=== PATIENT | female | born 1950 | race Caucasian/White ===

== ENCOUNTER → 2023-11-05 06:29 | Outpatient (REF) | payer MEDICARE, BC, SELFPAY ==
[2023-11-05 06:59] LABS: % Basophils 0.6 % (0-2); % Eosinophils 6.5 % (0-6); % Immature Granulocytes 0.2 % (0-0.5); % Lymphocytes 16.4 % (20.5-51.1); % Neutrophils 60.3 % (42.2-75.2); Absolute Eosinophils 0.3 10^3/uL (0-0.7); Absolute Lymphocytes 0.8 10^3/uL (1.2-3.4); Absolute Monocytes 0.8 10^3/uL (0.1-0.6); Absolute Neutrophils 2.9 10^3/uL (1.4-6.5); Hematocrit 32.9 % (37.0-47.0); Hemoglobin 10.6 g/dL (12.0-16.0); Mean Corp Hgb Conc. 32.2 g/dL (33.0-37.0); Mean Corpuscular Hgb 32.7 pg (27.0-31.0); Mean Corpuscular Volume 101.5 fL (81.0-99.0); Mean Platelet Volume 9.5 fL (7.4-10.4); Nucleated Red Blood Cells % 0 %; Platelet Count 202 10^3/uL (130-400); Red Blood Cell Count 3.24 10^6/uL (4.20-5.40); Red Cell Dist. Width 17.3 % (11.5-14.5); White Blood Cell Count 4.8 10^3/uL (4.8-10.8)
[2023-11-05 07:38] LABS: ALT (SGPT) 25 U/L (0-35); AST (SGOT) 32 U/L (14-36); Albumin 3.9 g/dl (3.5-5.0); Alkaline Phosphatase 81 U/L (38-126); Blood Urea Nitrogen 18 mg/dl (7-17); Calcium 9.4 mg/dl (8.4-10.2); Carbon Dioxide 28 mmol/L (22-30); Chloride 104 mmol/L (98-107); Glucose 97 mg/dl (70-99); Potassium 4.1 mmol/L (3.5-5.1); Sodium 136 mmol/L (135-145); Total Protein 5.8 g/dl (6.3-8.2); eGFR > 60.00
[2023-11-05 20:28] LABS: CA 125 7.2 U/mL (0-35)
== END ==
LOC: REG 06:29
PROVIDERS: ATTENDING PHYSICIAN Internal Medicine Hematology & Oncology; FAMILY PHYSICIAN Internal Medicine
DX: C56.9 Malignant neoplasm of unspecified ovary (principal); D70.9 Neutropenia, unspecified
CPT/HCPCS: 36415; 80053; 85025; 86304

== ENCOUNTER → 2023-11-16 06:27 | Outpatient (REF) | payer MEDICARE, BC, SELFPAY ==
[2023-11-16 07:08] LABS: % Basophils 0.4 % (0-2); % Eosinophils 6.9 % (0-6); % Immature Granulocytes 0.2 % (0-0.5); % Lymphocytes 16.4 % (20.5-51.1); % Monocytes 12.4 % (1.7-9.3); % Neutrophils 63.7 % (42.2-75.2); Absolute Eosinophils 0.3 10^3/uL (0-0.7); Absolute Lymphocytes 0.8 10^3/uL (1.2-3.4); Absolute Monocytes 0.6 10^3/uL (0.1-0.6); Hematocrit 32.3 % (37.0-47.0); Hemoglobin 10.5 g/dL (12.0-16.0); Mean Corp Hgb Conc. 32.5 g/dL (33.0-37.0); Mean Corpuscular Hgb 32.9 pg (27.0-31.0); Mean Corpuscular Volume 101.3 fL (81.0-99.0); Mean Platelet Volume 9.8 fL (7.4-10.4); Nucleated Red Blood Cells % 0 %; Platelet Count 197 10^3/uL (130-400); Red Blood Cell Count 3.19 10^6/uL (4.20-5.40); Red Cell Dist. Width 16.1 % (11.5-14.5); White Blood Cell Count 4.8 10^3/uL (4.8-10.8)
[2023-11-16 07:34] LABS: Urine Protein 58 mg/dl (0-12)
[2023-11-16 07:45] LABS: ALT (SGPT) 30 U/L (0-35); AST (SGOT) 34 U/L (14-36); Albumin 3.6 g/dl (3.5-5.0); Alkaline Phosphatase 73 U/L (38-126); Blood Urea Nitrogen 19 mg/dl (7-17); Calcium 9.5 mg/dl (8.4-10.2); Carbon Dioxide 31 mmol/L (22-30); Chloride 101 mmol/L (98-107); Glucose 101 mg/dl (70-99); Iron 62 ug/dl (37-170); Sodium 138 mmol/L (135-145); Total Bilirubin 0.8 mg/dl (0.2-1.3); eGFR > 60.00
[2023-11-16 07:55] LABS: Percent Saturation 25 % (20-50); Total Iron Binding Capacity 248 ug/dl (265-497)
[2023-11-16 09:45] LABS: Free T4 0.89 ng/dl (0.78-2.19)
[2023-11-16 10:05] LABS: Ferritin 39.6 ng/ml (11.1-264.0)
[2023-11-16 11:45] LABS: Folate 10.2 ng/ml (2.76-20); Vitamin B12 377 pg/ml (239-931)
== END ==
LOC: REG 06:27
PROVIDERS: ATTENDING PHYSICIAN Nurse Practitioner Primary Care; FAMILY PHYSICIAN Internal Medicine Hematology & Oncology; REFERRING PHYSICIAN Internal Medicine
DX: D64.9 Anemia, unspecified (principal); E53.8 Deficiency of other specified B group vitamins; C56.9 Malignant neoplasm of unspecified ovary; D70.9 Neutropenia, unspecified
CPT/HCPCS: 36415; 80053; 82570; 82607; 82728; 82746; 83540; 83550; 84156; 84439; 84443; 85025

== ENCOUNTER → 2023-11-19 06:37 | Day surgery (SDC) | payer MEDICARE, BC, SELFPAY | LOC: GI 06:37 | PROVIDERS: ATTENDING PHYSICIAN Internal Medicine; FAMILY PHYSICIAN Internal Medicine | DX: R09.A2 Foreign body sensation, throat (principal); R09.89 Other specified symptoms and signs involving the circulatory and respiratory systems; F45.8 Other somatoform disorders; K21.00 Gastro-esophageal reflux disease with esophagitis, without bleeding; K22.4 Dyskinesia of esophagus; K22.9 Disease of esophagus, unspecified | CPT/HCPCS: 43239; 88305; 87220 ==

== ENCOUNTER → 2023-11-27 06:27 | Outpatient (REF) | payer MEDICARE, BC, SELFPAY ==
[2023-11-27 07:38] LABS: % Basophils 0.5 % (0-2); % Eosinophils 7.1 % (0-6); % Lymphocytes 21.6 % (20.5-51.1); % Monocytes 15.6 % (1.7-9.3); % Neutrophils 55.2 % (42.2-75.2); Absolute Eosinophils 0.3 10^3/uL (0-0.7); Absolute Lymphocytes 0.8 10^3/uL (1.2-3.4); Absolute Monocytes 0.6 10^3/uL (0.1-0.6); Absolute Neutrophils 2.1 10^3/uL (1.4-6.5); Hematocrit 32.3 % (37.0-47.0); Hemoglobin 10.4 g/dL (12.0-16.0); Mean Corp Hgb Conc. 32.2 g/dL (33.0-37.0); Mean Corpuscular Hgb 31.5 pg (27.0-31.0); Mean Corpuscular Volume 97.9 fL (81.0-99.0); Nucleated Red Blood Cells % 0 %; Platelet Count 179 10^3/uL (130-400); Red Cell Dist. Width 14.6 % (11.5-14.5); White Blood Cell Count 3.8 10^3/uL (4.8-10.8)
[2023-11-27 07:55] LABS: Protein/creatinine Ratio 0.5; Urine Protein 52 mg/dl
[2023-11-27 08:04] LABS: NT-proBNP 124 pg/ml
[2023-11-27 08:15] LABS: ALT (SGPT) 24 U/L (0-35); AST (SGOT) 28 U/L (14-36); Albumin 3.7 g/dl (3.5-5.0); Alkaline Phosphatase 63 U/L (38-126); Blood Urea Nitrogen 19 mg/dl (7-17); Calcium 9.3 mg/dl (8.4-10.2); Carbon Dioxide 31 mmol/L (22-30); Chloride 102 mmol/L (98-107); Glucose 94 mg/dl (70-99); Potassium 4.4 mmol/L (3.5-5.1); Sodium 138 mmol/L (135-145); Total Bilirubin 0.6 mg/dl (0.2-1.3); Total Protein 5.6 g/dl (6.3-8.2); eGFR > 60.00
== END ==
LOC: REG 06:27
PROVIDERS: ATTENDING PHYSICIAN Nurse Practitioner Adult Health; FAMILY PHYSICIAN Internal Medicine
DX: C56.9 Malignant neoplasm of unspecified ovary (principal); D70.9 Neutropenia, unspecified
CPT/HCPCS: 36415; 80053; 82570; 83880; 84156; 85025

== ENCOUNTER → 2023-12-17 06:23 | Outpatient (REF) | payer MEDICARE, BC, SELFPAY ==
[2023-12-17 07:36] LABS: Urine Protein 46 mg/dl (0-12)
[2023-12-17 07:43] LABS: % Basophils 0.6 % (0-2); % Eosinophils 3.6 % (0-6); % Lymphocytes 21.5 % (20.5-51.1); % Monocytes 13.5 % (1.7-9.3); % Neutrophils 60.8 % (42.2-75.2); Absolute Eosinophils 0.1 10^3/uL (0-0.7); Absolute Lymphocytes 0.8 10^3/uL (1.2-3.4); Absolute Monocytes 0.5 10^3/uL (0.1-0.6); Absolute Neutrophils 2.2 10^3/uL (1.4-6.5); Hematocrit 35.4 % (37.0-47.0); Hemoglobin 11.4 g/dL (12.0-16.0); Mean Corp Hgb Conc. 32.2 g/dL (33.0-37.0); Mean Corpuscular Hgb 31.4 pg (27.0-31.0); Mean Corpuscular Volume 97.5 fL (81.0-99.0); Mean Platelet Volume 10.3 fL (7.4-10.4); Nucleated Red Blood Cells % 0 %; Platelet Count 188 10^3/uL (130-400); Red Blood Cell Count 3.63 10^6/uL (4.20-5.40); Red Cell Dist. Width 13.5 % (11.5-14.5); White Blood Cell Count 3.6 10^3/uL (4.8-10.8)
[2023-12-17 08:13] LABS: ALT (SGPT) 25 U/L (0-35); AST (SGOT) 34 U/L (14-36); Albumin 3.9 g/dl (3.5-5.0); Alkaline Phosphatase 75 U/L (38-126); Blood Urea Nitrogen 18 mg/dl (7-17); Calcium 9.6 mg/dl (8.4-10.2); Carbon Dioxide 29 mmol/L (22-30); Chloride 102 mmol/L (98-107); Glucose 93 mg/dl (70-99); Potassium 4.1 mmol/L (3.5-5.1); Sodium 135 mmol/L (135-145); Total Bilirubin 0.8 mg/dl (0.2-1.3); Total Protein 6.1 g/dl (6.3-8.2); eGFR > 60.00
== END ==
LOC: REG 06:23
PROVIDERS: ATTENDING PHYSICIAN Internal Medicine Hematology & Oncology
DX: C56.9 Malignant neoplasm of unspecified ovary (principal); D70.9 Neutropenia, unspecified
CPT/HCPCS: 36415; 80053; 82570; 84156; 85025

== ENCOUNTER → 2024-01-06 06:59 | Outpatient (REF) | payer MEDICARE, BC, SELFPAY ==
[2024-01-06 07:33] LABS: % Basophils 0.7 % (0-2); % Eosinophils 4.1 % (0-6); % Immature Granulocytes 0.2 % (0-0.5); % Lymphocytes 26.8 % (20.5-51.1); % Monocytes 11.7 % (1.7-9.3); % Neutrophils 56.5 % (42.2-75.2); Absolute Eosinophils 0.2 10^3/uL (0-0.7); Absolute Lymphocytes 1.1 10^3/uL (1.2-3.4); Absolute Monocytes 0.5 10^3/uL (0.1-0.6); Absolute Neutrophils 2.3 10^3/uL (1.4-6.5); Hematocrit 37.8 % (37.0-47.0); Hemoglobin 12.1 g/dL (12.0-16.0); Mean Corpuscular Hgb 30.6 pg (27.0-31.0); Mean Corpuscular Volume 95.5 fL (81.0-99.0); Mean Platelet Volume 9.7 fL (7.4-10.4); Nucleated Red Blood Cells % 0 %; Platelet Count 175 10^3/uL (130-400); Red Blood Cell Count 3.96 10^6/uL (4.20-5.40); Red Cell Dist. Width 13.3 % (11.5-14.5); White Blood Cell Count 4.1 10^3/uL (4.8-10.8)
[2024-01-06 09:00] LABS: Urine Protein 83 mg/dl
[2024-01-06 09:20] LABS: Protein/creatinine Ratio 1.2
[2024-01-06 09:39] LABS: ALT (SGPT) 51 U/L (0-35); AST (SGOT) 49 U/L (14-36); Albumin 4.2 g/dl (3.5-5.0); Alkaline Phosphatase 72 U/L (38-126); Blood Urea Nitrogen 22 mg/dl (7-17); Calcium 9.6 mg/dl (8.4-10.2); Carbon Dioxide 30 mmol/L (22-30); Chloride 101 mmol/L (98-107); Glucose 89 mg/dl (70-99); Potassium 4.3 mmol/L (3.5-5.1); Sodium 137 mmol/L (135-145); Total Bilirubin 0.6 mg/dl (0.2-1.3); Total Protein 6.4 g/dl (6.3-8.2); eGFR > 60.00
== END ==
LOC: REG 06:59
PROVIDERS: ATTENDING PHYSICIAN Nurse Practitioner Adult Health; FAMILY PHYSICIAN Internal Medicine
DX: C56.9 Malignant neoplasm of unspecified ovary (principal); D70.9 Neutropenia, unspecified
CPT/HCPCS: 36415; 80053; 82570; 84156; 85025

== ENCOUNTER → 2024-01-07 14:22 | Outpatient (REF) | payer MEDICARE, BC, SELFPAY ==
[2024-01-07 15:02] LABS: CA 125 8.8 U/mL (0-35)
== END ==
LOC: OIDL 14:22
PROVIDERS: ATTENDING PHYSICIAN Internal Medicine Hematology & Oncology
DX: C56.9 Malignant neoplasm of unspecified ovary (principal)
CPT/HCPCS: 86304

== ENCOUNTER → 2024-01-27 06:32 | Outpatient (REF) | payer MEDICARE, BC, SELFPAY ==
[2024-01-27 07:12] LABS: % Basophils 0.8 % (0-2); % Eosinophils 3.4 % (0-6); % Immature Granulocytes 0.3 % (0-0.5); % Lymphocytes 27.5 % (20.5-51.1); Absolute Eosinophils 0.1 10^3/uL (0-0.7); Absolute Lymphocytes 1.1 10^3/uL (1.2-3.4); Absolute Monocytes 0.5 10^3/uL (0.1-0.6); Absolute Neutrophils 2.1 10^3/uL (1.4-6.5); Hematocrit 38.6 % (37.0-47.0); Hemoglobin 12.6 g/dL (12.0-16.0); Mean Corp Hgb Conc. 32.6 g/dL (33.0-37.0); Mean Corpuscular Hgb 29.6 pg (27.0-31.0); Mean Corpuscular Volume 90.8 fL (81.0-99.0); Mean Platelet Volume 10.3 fL (7.4-10.4); Nucleated Red Blood Cells % 0 %; Platelet Count 171 10^3/uL (130-400); Red Blood Cell Count 4.25 10^6/uL (4.20-5.40); Red Cell Dist. Width 13.3 % (11.5-14.5); White Blood Cell Count 3.9 10^3/uL (4.8-10.8)
[2024-01-27 07:38] LABS: NT-proBNP 108 pg/ml
[2024-01-27 07:45] LABS: Urine Protein 43 mg/dl (0-12)
[2024-01-27 07:56] LABS: ALT (SGPT) 34 U/L (0-35); AST (SGOT) 40 U/L (14-36); Alkaline Phosphatase 68 U/L (38-126); Blood Urea Nitrogen 29 mg/dl (7-17); Calcium 9.7 mg/dl (8.4-10.2); Carbon Dioxide 29 mmol/L (22-30); Chloride 101 mmol/L (98-107); Glucose 91 mg/dl (70-99); Sodium 135 mmol/L (135-145); Total Bilirubin 0.7 mg/dl (0.2-1.3); eGFR > 60.00
== END ==
LOC: REG 06:32
PROVIDERS: ATTENDING PHYSICIAN Internal Medicine Cardiovascular Disease; FAMILY PHYSICIAN Internal Medicine Hematology & Oncology
DX: R60.0 Localized edema (principal); C56.9 Malignant neoplasm of unspecified ovary; D70.9 Neutropenia, unspecified
CPT/HCPCS: 36415; 80053; 82570; 83880; 84156; 85025

== ENCOUNTER → 2024-02-17 09:17 | Outpatient (REF) | payer MEDICARE, BC, SELFPAY ==
[2024-02-17 10:49] LABS: % Basophils 0.4 % (0-2); % Eosinophils 2.6 % (0-6); % Lymphocytes 18.2 % (20.5-51.1); % Monocytes 10.3 % (1.7-9.3); % Neutrophils 68.5 % (42.2-75.2); Absolute Eosinophils 0.1 10^3/uL (0-0.7); Absolute Lymphocytes 0.8 10^3/uL (1.2-3.4); Absolute Monocytes 0.5 10^3/uL (0.1-0.6); Absolute Neutrophils 3.1 10^3/uL (1.4-6.5); Hemoglobin 12.7 g/dL (12.0-16.0); Mean Corp Hgb Conc. 32.6 g/dL (33.0-37.0); Mean Corpuscular Hgb 29.5 pg (27.0-31.0); Mean Corpuscular Volume 90.5 fL (81.0-99.0); Mean Platelet Volume 10.1 fL (7.4-10.4); Nucleated Red Blood Cells % 0 %; Platelet Count 148 10^3/uL (130-400); Red Blood Cell Count 4.31 10^6/uL (4.20-5.40); Red Cell Dist. Width 13.4 % (11.5-14.5); White Blood Cell Count 4.6 10^3/uL (4.8-10.8)
[2024-02-17 11:40] LABS: Protein/creatinine Ratio 0.5; Urine Protein 44 mg/dl
[2024-02-17 12:21] LABS: ALT (SGPT) 22 U/L (0-35); AST (SGOT) 34 U/L (14-36); Alkaline Phosphatase 56 U/L (38-126); Blood Urea Nitrogen 23 mg/dl (7-17); Calcium 9.5 mg/dl (8.4-10.2); Carbon Dioxide 33 mmol/L (22-30); Chloride 100 mmol/L (98-107); Glucose 77 mg/dl (70-99); Potassium 4.7 mmol/L (3.5-5.1); Sodium 140 mmol/L (135-145); Total Bilirubin 0.5 mg/dl (0.2-1.3); Total Protein 6.2 g/dl (6.3-8.2); eGFR > 60.00
== END ==
LOC: RCS 09:17
PROVIDERS: ATTENDING PHYSICIAN Internal Medicine Cardiovascular Disease; FAMILY PHYSICIAN Nurse Practitioner Primary Care; REFERRING PHYSICIAN Internal Medicine Hematology & Oncology
DX: R06.09 Other forms of dyspnea (principal); T45.1X5D Adverse effect of antineoplastic and immunosuppressive drugs, subsequent encounter; R60.0 Localized edema; C56.9 Malignant neoplasm of unspecified ovary; D70.9 Neutropenia, unspecified
CPT/HCPCS: 36415; 80053; 82570; 84156; 85025; 93306; 93356

== ENCOUNTER → 2024-02-18 10:13 | Outpatient (REF) | payer MEDICARE, BC, SELFPAY ==
[2024-02-18 20:11] LABS: CA 125 6.4 U/mL (0-35)
== END ==
LOC: OIDL 10:13
PROVIDERS: ATTENDING PHYSICIAN Internal Medicine Hematology & Oncology
DX: C56.9 Malignant neoplasm of unspecified ovary (principal)
CPT/HCPCS: 86304

== ENCOUNTER → 2024-03-07 06:27 | Outpatient (REF) | payer MEDICARE, BC, SELFPAY ==
[2024-03-07 07:51] LABS: % Basophils 0.8 % (0-2); % Eosinophils 4.6 % (0-6); % Immature Granulocytes 0.3 % (0-0.5); % Lymphocytes 30.2 % (20.5-51.1); % Monocytes 12.2 % (1.7-9.3); % Neutrophils 51.9 % (42.2-75.2); Absolute Eosinophils 0.2 10^3/uL (0-0.7); Absolute Lymphocytes 1.1 10^3/uL (1.2-3.4); Absolute Monocytes 0.5 10^3/uL (0.1-0.6); Absolute Neutrophils 1.9 10^3/uL (1.4-6.5); Hematocrit 39.4 % (37.0-47.0); Mean Corpuscular Hgb 29.6 pg (27.0-31.0); Mean Corpuscular Volume 89.7 fL (81.0-99.0); Mean Platelet Volume 11.5 fL (7.4-10.4); Nucleated Red Blood Cells % 0 %; Platelet Count 150 10^3/uL (130-400); Red Blood Cell Count 4.39 10^6/uL (4.20-5.40); Red Cell Dist. Width 13.9 % (11.5-14.5); White Blood Cell Count 3.7 10^3/uL (4.8-10.8)
[2024-03-07 08:36] LABS: ALT (SGPT) 24 U/L (0-35); AST (SGOT) 38 U/L (14-36); Alkaline Phosphatase 66 U/L (38-126); Blood Urea Nitrogen 27 mg/dl (7-17); Calcium 9.7 mg/dl (8.4-10.2); Carbon Dioxide 31 mmol/L (22-30); Chloride 98 mmol/L (98-107); Glucose 98 mg/dl (70-99); Potassium 4.3 mmol/L (3.5-5.1); Sodium 137 mmol/L (135-145); Total Bilirubin 0.9 mg/dl (0.2-1.3); Total Protein 6.2 g/dl (6.3-8.2); eGFR > 60.00
[2024-03-07 08:49] LABS: Protein/creatinine Ratio 0.5; Urine Protein 40 mg/dl
== END ==
LOC: REG 06:27
PROVIDERS: ATTENDING PHYSICIAN Internal Medicine Hematology & Oncology; FAMILY PHYSICIAN Internal Medicine
DX: C56.9 Malignant neoplasm of unspecified ovary (principal); D70.9 Neutropenia, unspecified
CPT/HCPCS: 36415; 80053; 82570; 84156; 85025

== ENCOUNTER → 2024-04-02 07:15 | Outpatient (REF) | payer MEDICARE, BC, SELFPAY ==
[2024-04-02 08:27] LABS: % Basophils 0.3 % (0-2); % Immature Granulocytes 0.3 % (0-0.5); % Lymphocytes 30.9 % (20.5-51.1); % Monocytes 13.5 % (1.7-9.3); Absolute Eosinophils 0.1 10^3/uL (0-0.7); Absolute Lymphocytes 1.1 10^3/uL (1.2-3.4); Absolute Monocytes 0.5 10^3/uL (0.1-0.6); Absolute Neutrophils 1.8 10^3/uL (1.4-6.5); Hematocrit 36.7 % (37.0-47.0); Hemoglobin 12.1 g/dL (12.0-16.0); Mean Corpuscular Hgb 30.1 pg (27.0-31.0); Mean Corpuscular Volume 91.3 fL (81.0-99.0); Mean Platelet Volume 10.9 fL (7.4-10.4); Nucleated Red Blood Cells % 0 %; Platelet Count 146 10^3/uL (130-400); Red Blood Cell Count 4.02 10^6/uL (4.20-5.40); Red Cell Dist. Width 14.2 % (11.5-14.5); White Blood Cell Count 3.5 10^3/uL (4.8-10.8)
[2024-04-02 09:04] LABS: ALT (SGPT) 24 U/L (0-35); AST (SGOT) 33 U/L (14-36); Alkaline Phosphatase 60 U/L (38-126); Blood Urea Nitrogen 24 mg/dl (7-17); Calcium 9.3 mg/dl (8.4-10.2); Carbon Dioxide 30 mmol/L (22-30); Chloride 102 mmol/L (98-107); Glucose 94 mg/dl (70-99); Potassium 4.4 mmol/L (3.5-5.1); Protein/creatinine Ratio 0.3; Sodium 139 mmol/L (135-145); Total Bilirubin 0.5 mg/dl (0.2-1.3); Urine Protein 32 mg/dl; eGFR > 60.00
== END ==
LOC: REG 07:15
PROVIDERS: ATTENDING PHYSICIAN Internal Medicine Hematology & Oncology; FAMILY PHYSICIAN Internal Medicine
DX: C56.9 Malignant neoplasm of unspecified ovary (principal); D70.9 Neutropenia, unspecified
CPT/HCPCS: 36415; 80053; 82570; 84156; 85025

== ENCOUNTER → 2024-04-05 15:40 | Outpatient (REF) | payer MEDICARE, BC, SELFPAY ==
[2024-04-05 15:27] LABS: CA 125 5.8 U/mL (0-35)
== END ==
LOC: OIDL 15:40
PROVIDERS: ATTENDING PHYSICIAN Internal Medicine Hematology & Oncology
DX: C56.9 Malignant neoplasm of unspecified ovary (principal)
CPT/HCPCS: 86304

== ENCOUNTER → 2024-04-26 06:30 | Outpatient (REF) | payer MEDICARE, BC, SELFPAY ==
[2024-04-26 07:22] LABS: % Basophils 0.5 % (0-2); % Eosinophils 5.5 % (0-6); % Immature Granulocytes 0.5 % (0-0.5); % Lymphocytes 26.2 % (20.5-51.1); % Monocytes 12.3 % (1.7-9.3); Absolute Eosinophils 0.2 10^3/uL (0-0.7); Absolute Monocytes 0.5 10^3/uL (0.1-0.6); Absolute Neutrophils 2.2 10^3/uL (1.4-6.5); Hematocrit 36.3 % (37.0-47.0); Hemoglobin 12.3 g/dL (12.0-16.0); Mean Corp Hgb Conc. 33.9 g/dL (33.0-37.0); Mean Corpuscular Hgb 30.5 pg (27.0-31.0); Mean Corpuscular Volume 90.1 fL (81.0-99.0); Mean Platelet Volume 10.7 fL (7.4-10.4); Nucleated Red Blood Cells % 0 %; Platelet Count 150 10^3/uL (130-400); Red Blood Cell Count 4.03 10^6/uL (4.20-5.40); Red Cell Dist. Width 13.3 % (11.5-14.5)
[2024-04-26 07:55] LABS: Protein/creatinine Ratio 0.2; Urine Protein 30 mg/dl
[2024-04-26 08:29] LABS: ALT (SGPT) 25 U/L (0-35); AST (SGOT) 36 U/L (14-36); Alkaline Phosphatase 56 U/L (38-126); Blood Urea Nitrogen 28 mg/dl (7-17); Calcium 9.6 mg/dl (8.4-10.2); Carbon Dioxide 32 mmol/L (22-30); Chloride 99 mmol/L (98-107); Glucose 99 mg/dl (70-99); Potassium 4.5 mmol/L (3.5-5.1); Sodium 137 mmol/L (135-145); Total Bilirubin 0.7 mg/dl (0.2-1.3); eGFR > 60.00
== END ==
LOC: REG 06:30
PROVIDERS: ATTENDING PHYSICIAN Internal Medicine Hematology & Oncology; FAMILY PHYSICIAN Internal Medicine
DX: C56.9 Malignant neoplasm of unspecified ovary (principal); D70.9 Neutropenia, unspecified; M25.522 Pain in left elbow; M25.622 Stiffness of left elbow, not elsewhere classified
CPT/HCPCS: 36415; 80053; 82570; 84156; 85025

== ENCOUNTER → 2024-04-28 12:18 | Outpatient (REF) | payer MEDICARE, BC, SELFPAY | LOC: HWRAD 12:18 | PROVIDERS: ATTENDING PHYSICIAN Internal Medicine Hematology & Oncology; FAMILY PHYSICIAN Nurse Practitioner Primary Care; REFERRING PHYSICIAN Nurse Practitioner Adult Health | DX: C56.9 Malignant neoplasm of unspecified ovary (principal); D70.9 Neutropenia, unspecified; M25.522 Pain in left elbow; M25.622 Stiffness of left elbow, not elsewhere classified | CPT/HCPCS: 71260; 72050; 74177; Q9967 ==

== ENCOUNTER → 2024-05-16 06:28 | Outpatient (REF) | payer MEDICARE, BC, SELFPAY ==
[2024-05-16 07:58] LABS: Protein/creatinine Ratio 0.6; Urine Protein 43 mg/dl
[2024-05-16 08:09] LABS: % Basophils 0.5 % (0-2); % Eosinophils 4.5 % (0-6); % Immature Granulocytes 0.3 % (0-0.5); % Lymphocytes 27.9 % (20.5-51.1); % Monocytes 10.8 % (1.7-9.3); Absolute Eosinophils 0.2 10^3/uL (0-0.7); Absolute Lymphocytes 1.1 10^3/uL (1.2-3.4); Absolute Monocytes 0.4 10^3/uL (0.1-0.6); Absolute Neutrophils 2.1 10^3/uL (1.4-6.5); Hematocrit 38.2 % (37.0-47.0); Hemoglobin 12.7 g/dL (12.0-16.0); Mean Corp Hgb Conc. 33.2 g/dL (33.0-37.0); Mean Corpuscular Hgb 31.1 pg (27.0-31.0); Mean Corpuscular Volume 93.6 fL (81.0-99.0); Mean Platelet Volume 10.9 fL (7.4-10.4); Nucleated Red Blood Cells % 0 %; Platelet Count 166 10^3/uL (130-400); Red Blood Cell Count 4.08 10^6/uL (4.20-5.40); Red Cell Dist. Width 13.1 % (11.5-14.5); White Blood Cell Count 3.8 10^3/uL (4.8-10.8)
[2024-05-16 08:24] LABS: ALT (SGPT) 21 U/L (0-35); AST (SGOT) 33 U/L (14-36); Albumin 3.9 g/dl (3.5-5.0); Alkaline Phosphatase 61 U/L (38-126); Blood Urea Nitrogen 18 mg/dl (7-17); Calcium 9.3 mg/dl (8.4-10.2); Carbon Dioxide 32 mmol/L (22-30); Chloride 101 mmol/L (98-107); Glucose 105 mg/dl (70-99); Potassium 4.5 mmol/L (3.5-5.1); Sodium 141 mmol/L (135-145); Total Bilirubin 0.7 mg/dl (0.2-1.3); Total Protein 5.9 g/dl (6.3-8.2); eGFR > 60.00
[2024-05-16 08:53] LABS: CA 125 11.3 U/mL (0-35)
== END ==
LOC: REG 06:28
PROVIDERS: ATTENDING PHYSICIAN Internal Medicine Hematology & Oncology; FAMILY PHYSICIAN Internal Medicine
DX: C56.9 Malignant neoplasm of unspecified ovary (principal); D70.9 Neutropenia, unspecified; M25.522 Pain in left elbow; M25.622 Stiffness of left elbow, not elsewhere classified
CPT/HCPCS: 36415; 80053; 82570; 84156; 85025; 86304

== ENCOUNTER → 2024-06-06 10:34 | Outpatient (REF) | payer MEDICARE, BC, SELFPAY ==
[2024-06-06 11:45] LABS: % Basophils 0.4 % (0-2); % Immature Granulocytes 0.2 % (0-0.5); % Lymphocytes 17.4 % (20.5-51.1); % Monocytes 9.4 % (1.7-9.3); % Neutrophils 71.6 % (42.2-75.2); Absolute Eosinophils 0.1 10^3/uL (0-0.7); Absolute Lymphocytes 0.9 10^3/uL (1.2-3.4); Absolute Monocytes 0.5 10^3/uL (0.1-0.6); Absolute Neutrophils 3.7 10^3/uL (1.4-6.5); Hematocrit 38.3 % (37.0-47.0); Hemoglobin 12.8 g/dL (12.0-16.0); Mean Corp Hgb Conc. 33.4 g/dL (33.0-37.0); Mean Corpuscular Hgb 31.4 pg (27.0-31.0); Mean Corpuscular Volume 93.9 fL (81.0-99.0); Mean Platelet Volume 10.6 fL (7.4-10.4); Nucleated Red Blood Cells % 0 %; Platelet Count 157 10^3/uL (130-400); Red Blood Cell Count 4.08 10^6/uL (4.20-5.40); Red Cell Dist. Width 13.2 % (11.5-14.5); White Blood Cell Count 5.1 10^3/uL (4.8-10.8)
[2024-06-06 12:01] LABS: Urine Protein 89 mg/dl
[2024-06-06 12:26] LABS: ALT (SGPT) 37 U/L (0-35); AST (SGOT) 43 U/L (14-36); Albumin 4.3 g/dl (3.5-5.0); Alkaline Phosphatase 69 U/L (38-126); Blood Urea Nitrogen 19 mg/dl (7-17); Calcium 9.9 mg/dl (8.4-10.2); Carbon Dioxide 27 mmol/L (22-30); Chloride 99 mmol/L (98-107); Glucose 103 mg/dl (70-99); Potassium 5.3 mmol/L (3.5-5.1); Sodium 136 mmol/L (135-145); Total Bilirubin 1.1 mg/dl (0.2-1.3); Total Protein 6.3 g/dl (6.3-8.2); eGFR > 60.00
[2024-06-06 18:18] LABS: CA 125 14.2 U/mL (0-35)
== END ==
LOC: REG 10:34
PROVIDERS: ATTENDING PHYSICIAN Internal Medicine Hematology & Oncology; FAMILY PHYSICIAN Internal Medicine; REFERRING PHYSICIAN Internal Medicine Cardiovascular Disease
DX: C56.9 Malignant neoplasm of unspecified ovary (principal); M25.522 Pain in left elbow; D70.9 Neutropenia, unspecified; M25.622 Stiffness of left elbow, not elsewhere classified
CPT/HCPCS: 36415; 80053; 82570; 84156; 85025; 86304

== ENCOUNTER → 2024-06-30 10:16 | Outpatient (REF) | payer MEDICARE, BC, SELFPAY | LOC: WDC 10:16 | PROVIDERS: ATTENDING PHYSICIAN Nurse Practitioner Primary Care | DX: Z12.31 Encounter for screening mammogram for malignant neoplasm of breast (principal) | CPT/HCPCS: 77063; 77067 ==

== ENCOUNTER → 2024-07-02 07:16 | Outpatient (REF) | payer MEDICARE, BC, SELFPAY ==
[2024-07-02 08:50] LABS: % Basophils 0.8 % (0-2); % Eosinophils 2.7 % (0-6); % Immature Granulocytes 0.3 % (0-0.5); % Lymphocytes 16.8 % (20.5-51.1); % Monocytes 10.6 % (1.7-9.3); % Neutrophils 68.8 % (42.2-75.2); Absolute Eosinophils 0.1 10^3/uL (0-0.7); Absolute Lymphocytes 0.6 10^3/uL (1.2-3.4); Absolute Monocytes 0.4 10^3/uL (0.1-0.6); Absolute Neutrophils 2.5 10^3/uL (1.4-6.5); Hematocrit 38.8 % (37.0-47.0); Hemoglobin 12.7 g/dL (12.0-16.0); Mean Corp Hgb Conc. 32.7 g/dL (33.0-37.0); Mean Corpuscular Hgb 30.3 pg (27.0-31.0); Mean Corpuscular Volume 92.6 fL (81.0-99.0); Mean Platelet Volume 10.4 fL (7.4-10.4); Nucleated Red Blood Cells % 0 %; Platelet Count 174 10^3/uL (130-400); Red Blood Cell Count 4.19 10^6/uL (4.20-5.40); Red Cell Dist. Width 13.3 % (11.5-14.5); White Blood Cell Count 3.7 10^3/uL (4.8-10.8)
[2024-07-02 08:51] LABS: Protein/creatinine Ratio 0.5; Urine Protein 50 mg/dl
[2024-07-02 09:16] LABS: ALT (SGPT) 29 U/L (0-35); AST (SGOT) 36 U/L (14-36); Albumin 4.3 g/dl (3.5-5.0); Alkaline Phosphatase 55 U/L (38-126); Blood Urea Nitrogen 24 mg/dl (7-17); Calcium 9.6 mg/dl (8.4-10.2); Carbon Dioxide 29 mmol/L (22-30); Chloride 102 mmol/L (98-107); Glucose 96 mg/dl (70-99); HDL Cholesterol 100 mg/dl; LDL Cholesterol, Calculated 78 mg/dl; Potassium 4.9 mmol/L (3.5-5.1); Sodium 143 mmol/L (135-145); Total Cholesterol 199 mg/dl (50-199); Total Protein 6.3 g/dl (6.3-8.2); Triglyceride 108 mg/dl (10-149); Very Low Density Lipoprotein 21 mg/dl (0-30); eGFR > 60.00
[2024-07-02 09:17] LABS: NT-proBNP 74.2 pg/ml
[2024-07-02 09:26] LABS: D-Dimer 0.43 ug/mlFEU (0.00-0.50)
[2024-07-02 09:31] LABS: Vitamin D, 25-OH*** 33.1 ng/mL (30-80)
[2024-07-02 09:45] LABS: TSH Reflex To Free T4 4.57 uIU/ml (0.47-4.68)
[2024-07-03 23:42] LABS: IgG 381 mg/dl (700-1600)
== END ==
LOC: REG 07:16
PROVIDERS: ATTENDING PHYSICIAN Nurse Practitioner Primary Care; FAMILY PHYSICIAN Internal Medicine Hematology & Oncology
DX: C56.9 Malignant neoplasm of unspecified ovary (principal); D05.12 Intraductal carcinoma in situ of left breast; R91.1 Solitary pulmonary nodule; R06.09 Other forms of dyspnea; Z86.16 Personal history of COVID-19; D70.9 Neutropenia, unspecified; M25.522 Pain in left elbow; M25.622 Stiffness of left elbow, not elsewhere classified; I10 Essential (primary) hypertension; E78.2 Mixed hyperlipidemia; E55.9 Vitamin D deficiency, unspecified
CPT/HCPCS: 36415; 71046; 80053; 80061; 82306; 82570; 82784; 83880; 84156; 84443; 85025; 85379; 86304

== ENCOUNTER → 2024-07-08 15:47 | Outpatient (REF) | payer MEDICARE, BC, SELFPAY | LOC: HWRCS 15:47 | PROVIDERS: ATTENDING PHYSICIAN Internal Medicine Cardiovascular Disease; FAMILY PHYSICIAN Internal Medicine | DX: R06.09 Other forms of dyspnea (principal) | CPT/HCPCS: 93306 ==

== ENCOUNTER → 2024-07-13 07:41 | Outpatient (REF) | payer MEDICARE, BC, SELFPAY | LOC: DHCBC/DCA 07:41 | PROVIDERS: ATTENDING PHYSICIAN Internal Medicine Cardiovascular Disease; FAMILY PHYSICIAN Internal Medicine | DX: R06.09 Other forms of dyspnea (principal) | CPT/HCPCS: 78452; 93017; A9500 ==

== ENCOUNTER → 2024-07-15 09:12 | Outpatient (REF) | payer MEDICARE, BC, SELFPAY ==
[2024-07-15 10:11] LABS: % Basophils 0.6 % (0-2); % Eosinophils 2.4 % (0-6); % Immature Granulocytes 0.2 % (0-0.5); % Lymphocytes 16.5 % (20.5-51.1); % Monocytes 7.7 % (1.7-9.3); % Neutrophils 72.6 % (42.2-75.2); Absolute Eosinophils 0.1 10^3/uL (0-0.7); Absolute Lymphocytes 0.8 10^3/uL (1.2-3.4); Absolute Monocytes 0.4 10^3/uL (0.1-0.6); Absolute Neutrophils 3.7 10^3/uL (1.4-6.5); Hematocrit 36.5 % (37.0-47.0); Mean Corp Hgb Conc. 32.9 g/dL (33.0-37.0); Mean Corpuscular Hgb 29.9 pg (27.0-31.0); Mean Platelet Volume 10.2 fL (7.4-10.4); Nucleated Red Blood Cells % 0 %; Platelet Count 167 10^3/uL (130-400); Red Blood Cell Count 4.01 10^6/uL (4.20-5.40); Red Cell Dist. Width 13.2 % (11.5-14.5); White Blood Cell Count 5.1 10^3/uL (4.8-10.8)
== END ==
LOC: REG 09:12
PROVIDERS: ATTENDING PHYSICIAN Internal Medicine Hematology & Oncology; FAMILY PHYSICIAN Internal Medicine
DX: C56.9 Malignant neoplasm of unspecified ovary (principal); D70.9 Neutropenia, unspecified; M25.522 Pain in left elbow; M25.622 Stiffness of left elbow, not elsewhere classified; D80.1 Nonfamilial hypogammaglobulinemia
CPT/HCPCS: 36415; 85025

== ENCOUNTER → 2024-07-20 09:46 | Outpatient (REF) | payer MEDICARE, BC, SELFPAY ==
[2024-07-20 12:01] LABS: Blood Urea Nitrogen 21 mg/dl (7-17); Calcium 9.7 mg/dl (8.4-10.2); Carbon Dioxide 27 mmol/L (22-30); Chloride 101 mmol/L (98-107); Glucose 100 mg/dl (70-99); Potassium 4.9 mmol/L (3.5-5.1); Sodium 138 mmol/L (135-145); eGFR > 60.00
[2024-07-21 18:32] LABS: CA 125 18.7 U/mL (0-35)
== END ==
LOC: REG 09:46
PROVIDERS: ATTENDING PHYSICIAN Internal Medicine Hematology & Oncology; FAMILY PHYSICIAN Internal Medicine
DX: C56.9 Malignant neoplasm of unspecified ovary (principal); D70.9 Neutropenia, unspecified; M25.522 Pain in left elbow; M25.622 Stiffness of left elbow, not elsewhere classified; D80.1 Nonfamilial hypogammaglobulinemia
CPT/HCPCS: 36415; 80048; 86304

== ENCOUNTER → 2024-07-21 09:09 | Outpatient (REF) | payer MEDICARE, BC, SELFPAY | LOC: HWRAD 09:09 | PROVIDERS: ATTENDING PHYSICIAN Internal Medicine Hematology & Oncology; FAMILY PHYSICIAN Internal Medicine; REFERRING PHYSICIAN Internal Medicine Cardiovascular Disease | DX: D70.9 Neutropenia, unspecified (principal); D80.1 Nonfamilial hypogammaglobulinemia; C56.9 Malignant neoplasm of unspecified ovary; M25.522 Pain in left elbow; M25.622 Stiffness of left elbow, not elsewhere classified | CPT/HCPCS: 71260; 74177; Q9967 ==

== ENCOUNTER 2024-07-21 19:51 | Inpatient (IN) | payer MEDICARE, BC, SELFPAY ==
[2024-07-21] VITALS (8 sets, daily range): BP systolic 139–164; BP diastolic 58–78; BMI 25.8; BMI 24.8
--- NOTE | 2024-07-21 18:12 | ED.GENMED ---
History of Present Illness
General
Chief Complaint: Chest Pain
Source: patient
Exam Limitations: none
Time Seen by Provider: 07/21/24 17:56
History of Present Illness
History of Present Illness:
This is a 73 year old female that comes in with c/o chest tightness. States that for the past couple of weeks she has had chest tightness and SOB. States that she had an echo and a Nuclear stress test last week and the echo was good but the nuclear
stress test was abnormal. States that she was started on Toprol last Thursday but this has not really helped. States that she went to see the Utility Lineman today and patient was sent over from admission and IV Heparin. Patient to have Cardiac cath
tomorrow. States that she is SOB with activity and that her chest tightness is right in the middle of her chest. States that she also has a headache and is very anxious. Denies any fever, chills, abd pain, nausea, vomiting, diarrhea, dizziness,
urinary burning.
Past History
Past History
ED Past Medical History: Cancer (Basal Cell, Breast CA, Ovarian CA), CVA (TIA, ), GERD, HTN, Hypercholesterolemia, Psychiatric (Anxiety) and Other (Neuropathy, Ulcers, esophagitis, Renal calculus, SBO, Tinitus, Right ulnar shortening. )
ED Past Surgical History: None, Gynecological (Total hysterectomy), Orthopedic (right arm Ulnar shortened, ) and Other (Cataracts, metastatic ovarian cancer with recent debulking procedure)
Social History
Tobacco: Former smoker
Alcohol: Occasional
Drug: None
Personal:
Living: with family
Review of Systems
Review of Systems
All Other Systems: ROS reviewed and negative except as documented in HPI and ROS
Constitutional: Reports no symptoms; Denies fever or chills
EENT: Reports no symptoms
Respiratory: Reports trouble breathing; Denies cough
Cardiac: Reports chest pain
ABD/GI: Reports no symptoms; Denies abdominal pain, nausea, vomiting or diarrhea
: Reports no symptoms; Denies dysuria, frequency or urgency
Musculoskeletal: Reports no symptoms
Skin: Reports no symptoms
Neurological: Reports headache; Denies dizzy
Psychiatric: Reports anxiety
Phy Exam
General Physical Exam
General Presentation: no apparent distress
General age: appears stated age
General Skin: warm and dry
General Habitus: elderly
General Mental: alert and tearful
General Hydration: appears well hydrated
ENT Exam
ENT Exam: TM's normal, pharynx normal and neck supple
Eye Exam
Eye Exam: EOMI
Cardiovascular Exam
Cardiovascular Exam: regular rate/rhythm, no edema and normal peripheral pulses
Pulmonary Exam
Pulmonary Exam: lungs clear, no respiratory distress, no rales, chest non tender, no crackles, no rhonchi, no wheezing and no cough
Gastrointestinal Exam
Gastrointestinal Exam: normal bowel sounds, non tender, soft, no organomegaly, no pulsatile mass and non distended
Musculoskeletal Exam
Musculoskeletal Exam: full ROM and no edema
Skin Exam
Skin Exam: normal color, warm/dry, no rash and no petechia
Psychiatric Exam
Psychiatric Exam: anxious
Scores
Heart Score for Chest Pain Patients
STEMI patient?: No
History: Slightly or Non-Suspicious
ECG: Normal
Age: >/= 65 years
Risk Factors: >/= 3 Risk Factors or History of CAD
Troponin: </= Normal Limit
Heart Score for Chest Pain Patients: 4
Heart Score Risk: 20.3% MACE over next 6 weeks
Course
Orders/Labs/Results
Orders:
Orders
07/21/24 17:29
Electrocardiogram (*1) Urgent
Reason for Study: Chest Pain
07/21/24 17:30
EKG- Treatment ONCE
07/21/24 18:10
Heparin 4,000 units IV NOW STA
07/21/24 18:[address] Non Medication Order As Directed
Physician Order: PTT 6 hours after initial start of Heparin infusion
Above order entered?: Yes
07/21/24 18:12
Lorazepam [Ativan] 1 mg PO NOW STA
07/21/24 18:14
Complete Blood Count/With Diff Urgent
Comprehensive Metabolic Panel Urgent
PTT Urgent
Comment: Obtain baseline before beginning heparin infusion if not already collected
Prothrombin Time Urgent
Troponin I Urgent
07/21/24 18:15
Heparin 22010 Units/250 ml 25,000 units in 250 ml IV PER PROTOCOL
Weight to be used for heparin protocol in kilograms (kg):: 70.4
Protocol:: Cardiac Tx/Acute Coronary
PTT Goal Range to be used:: PTT 73 to 111 seconds
Order type:: Initial
INITIAL Infusion Dose (UNITS/KG/hr) & then follow protocol:: 12 units/kg/hr
Infusion Dose in UNITS/hr & then follow protocol (UNITS/hr):: 850
INFUSION RATE in mL/hr & then follow protocol (mL/hr):: 8.5
PTT less than or equal to 64 seconds:: Increase rate by 200 units/hr (+ 2 mL/hr)
PTT 64.1 to 72.9 seconds:: Increase rate by 100 units/hr (+ 1 mL/hr)
PTT 73 to 111 seconds:: Target Range. No change in rate.
PTT 111.1 to 130.9 seconds:: Decrease rate by 100 units/hr (- 1 mL/hr)
PTT 131 to 199.9 seconds:: HOLD for 1 hr. Then decrease rate by 200 units/hr (- 2 mL/hr)
PTT greater than or equal to 200 seconds:: HOLD for 2 hrs & Notify Provider. Then decrease by 200 units/hr (-
2 mL/hr)
Lab follow-up:: Each change, PTT q6h until 2 consecutive are therapeutic. Then PTT
daily.
07/21/24 18:19
CR Chest - 2 Views Urgent
Comment:
Reason For Exam: Chest pain, SOB
07/21/24 18:21
Lorazepam [Ativan] 0.5 mg PO NOW STA
07/21/24 18:54
Consult Cardiology [CARDIOLOGY CONSULT] Urgent
Consulting Provider: El Moser
Was physician already notified: Yes
07/21/24 19:20
Admit/Transfer Patient As Directed
Co-Sign Provider:
Level of Care: Inpatient admission
Assign to:: Telemetry
Physician / Group: gail
Diagnosis: chest pain
Reason for Telemetry: Chest Pain syndromes
Date to Stop Telemetry: 07/23/24
Time to Stop Telemetry: 11:00
Reason for Hospitalization: chest pain
Expected length of stay greater than two midnights?: Yes
ELOS- Estimated Length of Stay in days: 3
I certify the patient meets the requirements for IP care: Yes
07/21/24 19:21
PRN Pain Medication Management As Directed
May give lesser potent ordered pain med per pt: Yes
preference::
Protocol:: Medication orders for pain may be administered in a
manner that supports deferring to patient preference
when the pt is:
- Requesting an ordered lesser potent pain medication.
Least to most potent pain medications are defined
as: acetaminophen < NSAID < tramadol < opioids
(morphine, oxycodone, hydromorphone).
- Requesting a lesser dose of the same medication IF
ORDERED.
- Requesting a less intrusive route of administration
if both routes are prescribed by the provider (PO <
IV).
07/21/24 19:22
Code Status As Directed
Resuscitation Status: Full Code
07/22/24 01:30
PTT Urgent
07/23/24 11:00
DC Protocol for Telemetry ONCE
Abnormal Lab Results
07/21/24
18:14
WBC 4.5 L 10^3/uL
(4.8-10.8)
RBC 3.59 L 10^6/uL
(4.20-5.40)
Hgb 11.1 L g/dL
(12.0-16.0)
Hct 31.6 L %
(37.0-47.0)
MPV 10.8 H fL
(7.4-10.4)
Monocytes % 12.1 H %
(1.7-9.3)
APTT 40.4 H Sec
(23.4-35.0)
Sodium 131 L mmol/L
(135-145)
Chloride 96 L mmol/L
(98-107)
BUN 18 H mg/dl
(7-17)
Glucose 110 H mg/dl
(70-99)
AST 37 H U/L
(14-36)
07/21/24 18:14
07/21/24 18:14
WBC slightly low. h/H slightly low. PT 12.7 with INR 0.95, PTT, 40.4, Sodium slightly low. Chloride low. Very slight dehydration. hyperglycemia. Troponin <0.012
Vital Signs
Initial and Last Documented VS:
Initial Vital Signs
Temp Pulse Resp BP Pulse Ox
98.8 F 61 18 159/68 100
07/21/24 17:32 07/21/24 17:32 07/21/24 17:32 07/21/24 17:32 07/21/24 17:32
Last Documented Vital Signs
Temp Pulse Resp BP Pulse Ox
98.8 F 58 14 139/58 99
07/21/24 17:32 07/21/24 20:00 07/21/24 20:00 07/21/24 20:00 07/21/24 20:00
MDM/Problems Addressed
Differential Diagnosis Includes:
Coronary syndrome, Anxiety
MDM/Problems Addressed:
This is a 73 year old female that comes in with c/o chest tightness and SOB. States that this has been going on for a couple of weeks. Patient was seen by the Cardiollgist today and sent in for admission and IV Heparin. Patient to have a Cardiac
cath tomorrow.
Will get labs, Start Heparin and admit.
Chronic conditions affecting care: Cancer
Acute Exacerbation and/or Progression of Chronic Illness: Cancer
*Pulse Oximetry
Patient hypoxic: no
*EKG
Interpreted by ED Provider?: Yes
Heart Rate: 59
Rate: normal
Rhythm: sinus
[place]: normal axis
Interval: normal interval
QRS Pattern: normal QRS
Ischemia: no ischemia
*Animal Laboratory Technician Interpretation
Rate: normal
Heart Rate: 70
Rhythm: sinus
*Critical Care Note
Total Time (30-74mins, 75-104mins- exclusive of procedures): Not Applicable
ED Attending Note
-
Portions of this chart may have been created with voice recognition software.� Occasional wrong word or��sound alike� substitutions may have occurred due to the inherent limitations of voice recognition software.
Discharge Plan
Interventions
Interventions:
*Risk Screen - Suicide Last Done: 07/21/24 17:36
*General Assessment Last Done: 07/21/24 17:36
*Neglect/Abuse Screening Last Done: 07/21/24 17:36
ED- Fall Risk Assessment Last Done: 07/21/24 18:03
ED- Cardiac Assessment Last Done: 07/21/24 18:03
[2024-07-21] MEDS: ATIVAN 0.5 MG PO (18:23)
[2024-07-21 18:24] LABS: % Basophils 0.4 % (0-2); % Eosinophils 2.7 % (0-6); % Immature Granulocytes 0.2 % (0-0.5); % Lymphocytes 27.6 % (20.5-51.1); % Monocytes 12.1 % (1.7-9.3); Absolute Eosinophils 0.1 10^3/uL (0-0.7); Absolute Lymphocytes 1.2 10^3/uL (1.2-3.4); Absolute Monocytes 0.5 10^3/uL (0.1-0.6); Absolute Neutrophils 2.5 10^3/uL (1.4-6.5); Hematocrit 31.6 % (37.0-47.0); Hemoglobin 11.1 g/dL (12.0-16.0); Mean Corp Hgb Conc. 35.1 g/dL (33.0-37.0); Mean Corpuscular Hgb 30.9 pg (27.0-31.0); Mean Platelet Volume 10.8 fL (7.4-10.4); Nucleated Red Blood Cells % 0 %; Platelet Count 158 10^3/uL (130-400); Red Blood Cell Count 3.59 10^6/uL (4.20-5.40); Red Cell Dist. Width 12.9 % (11.5-14.5); White Blood Cell Count 4.5 10^3/uL (4.8-10.8)
[2024-07-21 18:43] LABS: ALT (SGPT) 25 U/L (0-35); AST (SGOT) 37 U/L (14-36); Alkaline Phosphatase 54 U/L (38-126); Blood Urea Nitrogen 18 mg/dl (7-17); Calcium 9.4 mg/dl (8.4-10.2); Carbon Dioxide 25 mmol/L (22-30); Chloride 96 mmol/L (98-107); Estimated Creatinine Clearance 52 ml/min; Glucose 110 mg/dl (70-99); Potassium 4.2 mmol/L (3.5-5.1); Sodium 131 mmol/L (135-145); Total Bilirubin 0.4 mg/dl (0.2-1.3); Total Protein 6.4 g/dl (6.3-8.2); eGFR > 60.00
[2024-07-21 18:44] LABS: APTT 40.4 Sec (23.4-35.0)
[2024-07-21 18:47] LABS: INR 0.95; PT 12.7 Sec (11.4-14.6)
[2024-07-21 18:50] LABS: Troponin I < 0.012 ng/ml
--- NOTE | 2024-07-21 18:56 | HPS.HSE ---
Family Physician
-
Family Physician: Roshan Ram
Chief Complaint
-
chest pain, sob
History of Present Illness
73 year old female with PMH for mid sternum chest tightness for past few weeks. States that she had an echo and a Nuclear stress test last week and the echo was good but the nuclear stress test was abnormal. States that she was started on Toprol
last Thursday with mild improvement. stated chest tightness aggravated with exertion, after eating, walking. one night she felt chest pain with no aggravation. stated sob with exertion, relived with rest. denied runny nose, congestion and cough.
denied fever, chills. denied SAMSON, dizzy or syncopal episode.denied abdominal pain,n,v,d. denied dysuria or hematuria.
she had an routine visit today with cardiology, sent over for admission and IV Heparin. Patient to have Cardiac cath tomorrow.
Medical History
Past Medical History
Past Medical History: Reports Other
Additional Past Medical History:
Hypertension
Left breast cancer
Ovarian cancer
Hyperlipidemia
GERD with esophagitis
Anxiety
Aortic wall insufficiency
Past Surgical History: Reports Other
Additional Past Surgical History:
Hysterectomy
Bilateral cataract surgery
Social History
Tobacco: Former Smoker
Alcohol: None
Drug: None
Family History
Family History: Not pertinent
Allergies / Home Medications
Allergies reflects when Allergies were last updated in [employer].
Home Medications with original date entered in [employer]
Allergy/Medication List:
Allergies
Allergy/AdvReac Type Severity Reaction Status Date / Time
shellfish derived Allergy 'really Verified 10/11/23 09:47
bad GI
symptoms'
Home Medications
aspirin 81 mg tablet,delayed release 81 mg PO DAILY Blood Clot Prevention/Tx 08/17/23
atorvastatin 40 mg tablet 40 mg PO DAILY High Cholesterol 08/17/23
polyethylene glycol 3350 17 gram oral powder packet (Miralax) 17 g PO DAILYPRN PRN constipation 10/11/23
furosemide 20 mg tablet 20 mg PO MOWEFR 07/21/24
hydralazine 25 mg tablet 25 mg PO BID 07/21/24
lorazepam 0.5 mg tablet 0.5 mg PO DAILYPRN PRN anxiety 07/21/24
metoprolol succinate 25 mg tablet,extended release 24 hr 25 mg PO DAILY 07/21/24
pantoprazole 40 mg tablet,delayed release 40 mg PO DAILY 07/21/24
valsartan 160 mg tablet 160 mg PO BID 07/21/24
Review of Systems
-
Constitutional: Reports No Symptoms
EENT: Reports No Symptoms
Respiratory: Reports Trouble Breathing
Cardiac: Reports Chest Pain
Abdomen/GI: Reports No Symptoms
: Reports No Symptoms
Musculoskeletal: Reports No Symptoms
Skin: Reports No Symptoms
Neurological: Reports No Symptoms
Endocrine: Reports No Symptoms
Hematologic/Lymphatic: Reports No Symptoms
Psych: Reports No Symptoms
Physical Exam
Vital Signs
Vital Signs
Temp Pulse Resp BP Pulse Ox
98.8 F 57 20 164/76 100
07/21/24 17:32 07/21/24 18:00 07/21/24 18:00 07/21/24 18:00 07/21/24 18:00
Physical Exam
General: Well Developed, Well Nourished and No Apparent Distress
HEENT: NormoCephalic, Moist mucous membranes and Atraumatic
Respiratory: Clear
Cardiac: S1/S2 and Regular Rhythm; No Murmur or Rub
GI: Soft, Non Tender, Non Distended and Normal Bowel Sounds; No Organomegaly
Rectal: Deferred by Provider
Musculoskeletal: No Clubbing, No Cyanosis and No Edema
Skin: No Rash
Neuro: AO x 3 and Nonfocal/grossly intact
Psych: Calm
Laboratory Results
-
07/21/24 18:14
07/21/24 18:14
Laboratory Results
PT 12.7 Sec (11.4-14.6) 07/21/24 18:14
INR 0.95 07/21/24 18:14
APTT 40.4 Sec (23.4-35.0) H 07/21/24 18:14
Total Bilirubin 0.4 mg/dl (0.2-1.3) 07/21/24 18:14
AST 37 U/L (14-36) H 07/21/24 18:14
ALT 25 U/L (0-35) 07/21/24 18:14
Alkaline Phosphatase 54 U/L (38-126) 07/21/24 18:14
Troponin I < 0.012 ng/ml 07/21/24 18:14
Data Reviewed
-
Diagnostic Radiology: Report Reviewed by me
Lab Data: Labs Reviewed by me
Impression/Plan
-
#stable angina r/o ACS
-heparin drip
-cardiac cath tomorrow
-chest x ray negative
-EKg with sinus Augie
-continue asa
-cardiology consulted
#anemia likely dilutional
-hgb 11.1
-no active bleeding
-ctm
#acute hyponatremia likely from metastatic disease
-na 131
-ctm
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
-Follows with [facility]
#Metastatic ovarian cancer with debulking /hysterectomy Dx 2012, chemo 2013
#Port right upper chest wall
-Patient on a Avastin, last does was End of April
#HTN�benign
-continue Lasix, hydralazine, metoprolol,valsartan with hold parameter
#anxiety
-lorazepam continued
#HLD
-Continue atorvastatin 40 mg
#GERD/esophagitis Hx
-PPI continued
#Basal cell CA with removal
DVT prophylaxis
heparin Drip
#CODE status
-full code
[2024-07-21] MEDS: HEPARIN 4000 UNITS IV (19:18)
--- NOTE | 2024-07-21 19:18 | W.PN.UPDATE ---
Update Note
Progress Note Update
This is an addendum to the H&P written by Angeli Aguero on 07/21/2024. Patient seen and examined independently with RADIATOR SPECIALIST.
73-year-old female past medical history of hypertension, hypercholesteremia, breast cancer, ovarian cancer, CVA, GERD, anxiety, neuropathy, renal calculi, presenting for chest tightness over the past several weeks usually with exertion and with
shortness of breath. She had echocardiogram which was normal nuclear stress test last week which was abnormal. Started on Toprol last week.
Stress test showed small, mild partially reversible distal anterior and apical perfusion defect suggesting mild ischemia. Troponin negative. EKG shows sinus bradycardia. Chest x-ray unremarkable.
Patient with stable angina with abnormal stress test. Patient already on aspirin. Heparin drip. N.p.o. pastmidnight for catheterization tomorrow as per cardiology.
[2024-07-21] MEDS: HEPARIN 25000 UNITS/250 ML IV (19:22)
[2024-07-21] MEDS: DIOVAN 160 MG PO (22:37)
[2024-07-21] MEDS: APRESOLINE 25 MG PO (22:37)
[2024-07-21 22:42] LABS: Troponin I < 0.012 ng/ml
[2024-07-22] VITALS (11 sets, daily range): BP systolic 108–147; BP diastolic 52–72; BMI 24.5
[2024-07-22 02:13] LABS: APTT > 200 Sec (23.4-35.0)
[2024-07-22 02:17] LABS: Troponin I < 0.012 ng/ml
[2024-07-22 06:02] LABS: Hematocrit 30.4 % (37.0-47.0); Hemoglobin 10.5 g/dL (12.0-16.0); Mean Corp Hgb Conc. 34.5 g/dL (33.0-37.0); Mean Corpuscular Hgb 30.3 pg (27.0-31.0); Mean Corpuscular Volume 87.9 fL (81.0-99.0); Mean Platelet Volume 10.5 fL (7.4-10.4); Platelet Count 138 10^3/uL (130-400); Red Blood Cell Count 3.46 10^6/uL (4.20-5.40); White Blood Cell Count 3.5 10^3/uL (4.8-10.8)
[2024-07-22 07:05] LABS: Blood Urea Nitrogen 15 mg/dl (7-17); Calcium 9.3 mg/dl (8.4-10.2); Carbon Dioxide 26 mmol/L (22-30); Chloride 99 mmol/L (98-107); Estimated Creatinine Clearance 58 ml/min; Glucose 92 mg/dl (70-99); HDL Cholesterol 73 mg/dl; LDL Cholesterol, Calculated 75 mg/dl; Potassium 4.1 mmol/L (3.5-5.1); Sodium 134 mmol/L (135-145); Total Cholesterol 160 mg/dl (50-199); Triglyceride 62 mg/dl (10-149); Very Low Density Lipoprotein 12 mg/dl (0-30); eGFR > 60.00
--- NOTE | 2024-07-22 07:49 | CON.CAR ---
Addendum entered and electronically signed by Richard Alexander MD 07/22/24 10:26:
I saw and examined the patient.
The Warehouse Incentive Selector's note was reviewed and I agree with the note.
Comment:
GEN: No distress, awake, Ox3
HEENT: supple, anicteric, mmm
LUNGS: CTA, no wheezes/rales
CV: Reg, S1/S2, 1/6 syst LSB, no gallop
ABD: soft, BS+, NT/ND
EXT: No edema
NEURO: Gross non-focal
SKIN: No rash
Plan:
73-year-old female with past medical history of breast cancer and ovarian cancer presents with continued chest tightness and discomfort. This chest pain occurs with exertion and resolves with rest. She is also had some rest pains. She had an
exercise nuclear stress test July 13, 2024 which revealed a small mild partially reversible distal anterior perfusion defect with an abnormal EKG and chest pain on treadmill at 6 METS. She was seen in the cardiology office with worsening
symptoms and ultimately presented to the emergency room for further evaluation. Cardiac troponins are negative.
With abnormal stress test, continued escalating symptoms, and multiple risk factors for CAD including hypertension, hyperlipidemia, stroke, and peripheral vascular disease, plan is to proceed with cardiac cath to evaluate for possible coronary
artery disease. EKG with normal sinus rhythm.
Continue aspirin, atorvastatin, metoprolol, valsartan, hydralazine, and Lasix
Original Note:
Consultation
Consultation Request
Date/Time Consultation Performed: 07/22/24
Requesting Provider: Dr. Jimenez
Performing Provider: Pippa Jane PA-C for Dr. Alexander
Reason for Consultation: CP, abnormal stress test
Medical History
-
Chief Complaint: CP
History of Present Illness:
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
only with prognosis of 6 to 24 months per oncology. Also with HTN, HLD, history of cryptogenic CVA, mild to mod AI, suggestion of subclavian vein stenosis by CT scan. She had complained of chest discomfort with elevated levels of activity which
would stop with rest. She underwent stress testing 07/13/24 which showed small mild partially reversible distal anterior and apical perfusion defect suggestive of some mild ischemia. Toprol was added 07/15/24 with some mild improvement. 3 days ago
Imdur was prescribed, however patient had not yet started. she then was seen for urgent evaluation in office yesterday due to worsening symptoms. She reported now with some symptoms at rest, postprandial and when laying in bed at night. Due to
this she was referred to the emergency room for admission and plan for cath today. She reports some intermittent discomfort overnight which she describes as mild.
PMH:
Abnormal stress test 07/13/2024
L breast cancer s/p lumpectomy 2022
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
HTN
HLD
history of cryptogenic CVA
mild to mod AI
suggestion of subclavian vein stenosis by CT scan
GERD
Past Medical History
Past Medical History: Other (in HPI)
Social History
Tobacco: Former Smoker
Alcohol: None
Personal:
Living: With Family
Family History
Family History: Cancer and Other (afib)
Allergies / Home Medications
Allergy/AdvReac Type Severity Reaction Status Date / Time
shellfish derived Allergy 'really Verified 10/11/23 09:47
bad GI
symptoms'
�Medication �Instructions �Recorded �Confirmed �Type
aspirin 81 mg tablet,delayed 81 mg PO DAILY Blood Clot 08/17/23 07/21/24 History
release Prevention/Tx
atorvastatin 40 mg tablet 40 mg PO DAILY High Cholesterol 08/17/23 07/21/24 History
polyethylene glycol 3350 17 gram 17 g PO DAILYPRN PRN constipation 10/11/23 07/21/24 History
oral powder packet (Miralax)
furosemide 20 mg tablet 20 mg PO MOWEFR 07/21/24 07/21/24 History
hydralazine 25 mg tablet 25 mg PO BID 07/21/24 07/21/24 History
lorazepam 0.5 mg tablet 0.5 mg PO DAILYPRN PRN anxiety 07/21/24 07/21/24 History
metoprolol succinate 25 mg 25 mg PO DAILY 07/21/24 07/21/24 History
tablet,extended release 24 hr
pantoprazole 40 mg tablet,delayed 40 mg PO DAILY 07/21/24 07/21/24 History
release
valsartan 160 mg tablet 160 mg PO BID 07/21/24 07/21/24 History
Review of Systems
-
History Source: Patient and Family
All other systems: Negative unless noted
Physical Exam
Vital Signs
Temp Pulse Resp BP Pulse Ox
98.4 F 62 18 140/72 98
07/22/24 03:06 07/22/24 03:06 07/22/24 03:06 07/22/24 03:06 07/22/24 03:06
Lab Results
07/22/24 05:37
07/22/24 05:37
Troponin I < 0.012 ng/ml 07/22/24 01:37
Physical Exam
General: No Apparent Distress and Comfortable
HEENT: Normocephalic, Anicteric and Moist Mucous Membranes
Respiratory: Clear and Non Labored Respirations
Cardiac: S1/S2, Regular Rhythm and Murmur
GI: Soft, Non Tender, Non Distended and Normal Bowel Sounds
Musculoskeletal: No Clubbing, No Cyanosis and No Edema
Skin: Warm and Dry
Neuro: AO x 3
Impression / Plan
-
Primary Rolling Machine Operator Automatic: Dr. No Carey
Assessment:
CP, concern for [place]
Negative troponins
Abnormal stress test 07/13/2024
L breast cancer s/p lumpectomy 2022
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
HTN
HLD
history of cryptogenic CVA
mild to mod AI
suggestion of subclavian vein stenosis by CT scan
GERD
ECHO 07/08/24: EF 55 to 60%, mild to moderate AR, mild TR, PAP 25 to 30 mmHg, normal pericardium without effusion
Exercise nuclear stress test 07/13/2024: Small mild partially reversible distal anterior and apical perfusion defect, suggestive of some mild ischemia, moderate risk study, EF greater than 70%
Plan:
-Patient was referred from office yesterday due to symptoms concerning for progressive angina. She had recent echo and stress test with results as above
-She reports some intermittent discomfort overnight, which she describes as mild
-Chest x-ray without acute cardiopulmonary process
-Troponins serially negative
-EKG normal sinus rhythm
-Continue aspirin, IV heparin, Toprol, Diovan, hydralazine, lipitor
-NPO with plan for cardiac catheterization today. Procedure discussed with patient and at bedside
-Of note does also have history of GERD
-Discussed with nursing
Data Reviewed
-
EKG: Tracing Personally Visualized and interpreted
Radiology: Report Reviewed by me
Medical Tests (Nuc Med, Echo etc): Report Reviewed by me
Labs: Labs Reviewed by me
Old Records: Reviewed
[2024-07-22] MEDS: LASIX 20 MG PO (08:17)
[2024-07-22] MEDS: ASPIR LOW (ENTERIC COATED) 81 MG PO (08:18)
[2024-07-22] MEDS: TOPROL XL 25 MG PO (08:18)
[2024-07-22] MEDS: LIPITOR 40 MG PO (08:18)
[2024-07-22] MEDS: APRESOLINE 25 MG PO (08:19)
[2024-07-22] MEDS: DIOVAN 160 MG PO (08:19)
[2024-07-22] MEDS: PROTONIX 40 MG PO (08:19)
[2024-07-22 09:36] LABS: ACT-LR - POC 256 Seconds (116-155)
[2024-07-22 10:19] LABS: Glycohemoglobin (HgbA1c) 5.3 % (4.0-5.6)
[2024-07-22] MEDS: ATIVAN 0.5 MG PO (10:23)
[2024-07-22] MEDS: TYLENOL 650 MG PO (10:24)
--- NOTE | 2024-07-22 10:37 | ITS.CL.CATH ---
[facility] - Catheterization
Cardiac Catheterization
Procedure Report:
LEFT HEART CATHETERIZATION
Date of Procedure: July 22, 2024
Referring: Dr. No Carey
PROCEDURES:
1. Left heart catheterization with coronary and single-plane left ventriculography
2. Hemodynamic assessment of mid RCA stenosis with a Kent Omni wire. The iFR measured above the ischemic threshold at 0.95, 0.95, and 0.95
INDICATION: This is a 73-year-old female with a past medical history notable for stage IIIb ovarian cancer with subsequent development of peritoneal carcinomatosis. She continues to receive active therapy for her ovarian cancer and developed
substernal chest pressure. Stress testing from 07/13/2024 showed a mild small partially reversible distal anterior defect. Metoprolol was added with some improvement as was Imdur. Her chest pain persisted and she was admitted to [place] [facility]. Her troponin was serially undetectable. She is now referred for coronary angiography.
ACCESS: Right radial artery, 6 Armenian sheath
HEMODYNAMICS : (mmHg)
AO (s/d) : 153/75
LV (s/d) : 159/10
LVEDP : 20
CORONARY FINDINGS
DOMINANCE: Right
LEFT MAIN: Normal
LEFT ANTERIOR DESCENDING: The LAD arises normally from the left main and runs in the anterior interventricular groove. The LAD has minor irregularities over its course but no focal obstructive stenosis. A moderate to large size diagonal branch
arises proximally from the LAD and has minor irregularities. The smaller diagonal branch arises from the mid LAD.
CIRCUMFLEX: The circumflex gives rise to a bifurcating OM1 that arises very proximally and runs in a distribution typical for a ramus intermedius. The OM1 bifurcates into 2 daughter branches proximally. Both daughter branches have minor
irregularities with no focal obstructive stenosis. The circumflex terminates in 2 small obtuse marginal branches which are widely patent
RIGHT CORONARY ARTERY: The right coronary artery is a large-caliber dominant vessel. There is a smooth calcified plaque in the mid RCA with associated 50-60% stenosis. The iFR in the distal RCA measured above the ischemic threshold. The PDA
arises from the mid RCA just beyond the stenotic segment. The AV continuation of the right coronary artery is a large and supplies a large posterolateral branch.
VENTRICULOGRAPHY: Left ventriculography is performed in an MANZANO projection. The digital single-plane left ventricular ejection fraction is estimated at 65%. No regional wall motion abnormalities are noted
HEMODYNAMIC ASSESSMENT OF THE RCA WITH A VOLCANO OMNI WIRE: The origin of the RCA was cannulated with a 6 Fr JR4 guide catheter. Intravenous heparin was administered and the ACT was followed during the procedure. Two hundred micrograms of
intracoronary nitroglycerin was given through the guide catheter. A Kent Omni wire was advanced to the guide catheter tip and normalized to guide catheter pressure. The Omni wire was then carefully manipulated across the stenosis in the mid RCA
and into the distal vessel where the iFR serially measured above the ischemic threshold at 0.95, 0.94, and 0.95. The Omni wire was withdrawn to the guide catheter tip where the resting Pd/Pa measured 0.99 confirming no baseline drift.
RADIATION SUMMARY: Fluoro Time (min): 5.7, Dose (mGy): 170, DAP (Gy.cm2) : 13.4
Closure Device: TR band
CONCLUSIONS
1. Nonobstructive coronary disease with 50-60% mid RCA stenosis but iFR measuring above the ischemic threshold. No significant coronary disease involving the left coronary system
2. Preserved left ventricular systolic function
Copy to: Dr. No Carey
--- NOTE | 2024-07-22 12:30 | W.PN.HOSP.TC ---
Today's Communication/Plan
-
Escalate antacid therapy
Discharged with GI follow-up
Assessment / Plan
Assessment / Plan
#Chest tightness
#H/O GERD with esophagitis
-Suspicion high for pain secondary to chronic esophagitis; symptoms worse after eating
-Had recent abnormal stress test though coronary angiography today without obstructive finding
-Had radiology review CT from yesterday, no signs of SMA or celiac stenosis, no signs of PE
-Currently on Protonix daily, will escalate to twice daily and add famotidine as needed
-Encourage patient to follow-up with GI doctor in office, may need repeat EGD
-Provide prescription for CBC in 1 week to assess for bleeding
-Advised patient to return to ED for worsening symptoms, hematochezia or melena
#Normocytic anemia
-Suspected to be dilutional, all 3 cell lines have decreased since admission
-Hemoglobin most recently 10.5, has received IVF with heparin drip and blood draws
-Does have esophagitis so potential for low-grade bleeding though no signs and stool
-Will repeat CBC 1 week after discharge, advised patient to return to ED if she notices hematochezia or melena
#Hypertension
-Home medications include valsartan twice daily, metoprolol succinate daily
-No known history of hypertensive systemic disease
-Blood pressure well-controlled here
#Dyslipidemia
-Currently on high intensity statin, no known ASCVD history
#Unspecified neuropathy
#H/O breast cancer
#H/O ovarian cancer
Anticipated Discharge: Today
Subjective/Interval History
-
Date of Service: July 22, 2024
Patient was seen and examined at the bedside. No acute events overnight. AFVSS this morning.
She has had continuous chest tightness since admission. Coronary angiography today with nonobstructive CAD, no interventions required. With continued symptoms following procedure. CT C/A/P with contrast yesterday did not show any signs of
pulmonary embolism. Additionally, I had radiology review scan for signs of SMA or celiac occlusion as she did complain that her pain is worse after eating. Review of scan was negative for any signs of high-grade celiac or SMA stenosis.
She otherwise denies any acute complaints.
Objective Data
-
Labs:
Laboratory Results
07/22/24 07/22/24 07/22/24
01:37 05:37 10:20
WBC 3.5 L
Hgb 10.5 L
Hct 30.4 L
Plt Count 138
APTT > 200 H* Cancelled
Sodium 134 L
Potassium 4.1
Chloride 99
Carbon Dioxide 26
BUN 15
Creatinine 0.8
Glucose 92
Calcium 9.3
Vital Signs:
Vital Signs
Temp Pulse Resp BP Pulse Ox
97.3 F 59 18 134/70 96
07/22/24 11:25 07/22/24 11:25 07/22/24 11:25 07/22/24 11:25 07/22/24 11:25
I&O
07/21/24 07/22/24 07/23/24
06:59 06:59 06:59
Intake Total 0 / 0
Balance 0 / 0
Review of Systems
-
History Source: Patient
All other systems: Reviewed and negative
Physical Exam
-
General: Well Developed, Well Nourished, No Apparent Distress and Comfortable
HEENT: Normocephalic, Atraumatic and Moist Mucous Membranes
Respiratory: Clear to Auscultation and Non Labored Respirations
Cardiac: Regular Rhythm, S1/S2 and Murmur; Negative Rub or Gallop
GI: Soft, Nontender, Nondistended and Normal Bowel Sounds
Musculoskeletal: No Clubbing, No Cyanosis, No Edema and Other (No tenderness to chest wall palpation)
Skin: Warm, Dry and Normal Turgor; Negative Rash
Neuro: AO x 3, Nonfocal/Grossly Intact and Central Nerve's Intact
Psych: Calm
Data Reviewed
-
Labs: Labs Reviewed by me and Discussed with Patient
--- NOTE | 2024-07-22 13:00 | PTCARENOTE ---
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 Pt VSS, R band with eccymosis to puncture site but otherwise intact. Dr Resendiz made aware, pt given tylenol and ativan for comfort. Site checks to Right Wrist/ R Band completed as
ordered refer to cath flowsheet for air removal, Pt did have 2 episodes of oozing, Dr TED Brown made aware, air removal times extended per MD order. Pts vitals remained stable, at bedside. Plan of care continues.
[2024-07-22] MEDS: PEPCID 40 MG PO (13:08)
[2024-07-22] MEDS: ZOFRAN 4 MG IV (13:08)
--- NOTE | 2024-07-22 15:30 | CM ---
Alert awake oriented patient who lives with her All who lives in a 2 story home with 2 steps to enter and 10 to bed bathroom. She is independent in driving and in all activities of daily living.Offered VN she declined.
No adaptive devices
Never had VN/SNF
Pharmacy [facility]
PCP Dr Newell
PLAN Home no needs
--- NOTE | 2024-07-22 18:09 | PTCARENOTE ---
Pt for discharge, Right radial site gauze and tegaderm intact, continued bruising noted. Post cath instructions reviewed, pt reports soreness, instructed any worsening pain, or increased raised bruising to call cards, verbalized understanding.
== END 2024-07-22 18:17 | disposition home or self-care (01) | DRG 287 ==
LOC: 4 EAST ACU 19:51
PROVIDERS: Clinical Nurse Specialist Family Health; Internal Medicine Interventional Cardiology; Registered Nurse; ADMITTING PHYSICIAN Hospitalist; ATTENDING PHYSICIAN Internal Medicine; EMERGENCY PHYSICIAN Emergency Medicine; FAMILY PHYSICIAN Internal Medicine; OTHER PHYSICIAN Internal Medicine Cardiovascular Disease
PROC: B215YZZ Fluoroscopy of Left Heart using Other Contrast (ICD-10-PCS; 2024-07-22)
PROC: 4A033BC Measurement of Arterial Pressure, Coronary, Percutaneous Approach (ICD-10-PCS; 2024-07-22)
PROC: 4A023N7 Measurement of Cardiac Sampling and Pressure, Left Heart, Percutaneous Approach (ICD-10-PCS; 2024-07-22)
PROC: B211YZZ Fluoroscopy of Multiple Coronary Arteries using Other Contrast (ICD-10-PCS; 2024-07-22)
DX: I25.118 Atherosclerotic heart disease of native coronary artery with other forms of angina pectoris (principal); E87.1 Hypo-osmolality and hyponatremia; C78.6 Secondary malignant neoplasm of retroperitoneum and peritoneum; K21.00 Gastro-esophageal reflux disease with esophagitis, without bleeding; E78.00 Pure hypercholesterolemia, unspecified; F41.9 Anxiety disorder, unspecified; I10 Essential (primary) hypertension; G62.9 Polyneuropathy, unspecified; D63.0 Anemia in neoplastic disease; I35.1 Nonrheumatic aortic (valve) insufficiency; Z90.710 Acquired absence of both cervix and uterus; Z87.891 Personal history of nicotine dependence; Z86.73 Personal history of transient ischemic attack (TIA), and cerebral infarction without residual deficits; Z85.43 Personal history of malignant neoplasm of ovary; Z85.3 Personal history of malignant neoplasm of breast; Z79.899 Other long term (current) drug therapy; Z79.82 Long term (current) use of aspirin
CPT/HCPCS: 36415; 71046; 71260; 74177; 80048; 80053; 80061; 83036; 84484; 85025; 85027; 85347; 85610; 85730; 86304; 93005; 93458; 93799; 96374; 99285; C1769; C1894; Q9967

== ENCOUNTER → 2024-07-29 09:07 | Outpatient (REF) | payer MEDICARE, BC, SELFPAY ==
[2024-07-29 10:35] LABS: % Basophils 0.4 % (0-2); % Immature Granulocytes 0.2 % (0-0.5); % Lymphocytes 17.8 % (20.5-51.1); % Monocytes 8.6 % (1.7-9.3); Absolute Eosinophils 0.1 10^3/uL (0-0.7); Absolute Lymphocytes 0.9 10^3/uL (1.2-3.4); Absolute Monocytes 0.4 10^3/uL (0.1-0.6); Absolute Neutrophils 3.6 10^3/uL (1.4-6.5); Hematocrit 37.3 % (37.0-47.0); Hemoglobin 12.2 g/dL (12.0-16.0); Mean Corp Hgb Conc. 32.7 g/dL (33.0-37.0); Mean Corpuscular Hgb 30.3 pg (27.0-31.0); Mean Corpuscular Volume 92.8 fL (81.0-99.0); Nucleated Red Blood Cells % 0 %; Platelet Count 158 10^3/uL (130-400); Red Blood Cell Count 4.02 10^6/uL (4.20-5.40); Red Cell Dist. Width 13.2 % (11.5-14.5); White Blood Cell Count 5.1 10^3/uL (4.8-10.8)
[2024-07-29 10:59] LABS: ALT (SGPT) 83 U/L (0-35); AST (SGOT) 68 U/L (14-36); Albumin 4.4 g/dl (3.5-5.0); Alkaline Phosphatase 64 U/L (38-126); Blood Urea Nitrogen 17 mg/dl (7-17); Carbon Dioxide 28 mmol/L (22-30); Chloride 97 mmol/L (98-107); Glucose 98 mg/dl (70-99); Potassium 5.3 mmol/L (3.5-5.1); Sodium 135 mmol/L (135-145); Total Bilirubin 0.8 mg/dl (0.2-1.3); Total Protein 6.8 g/dl (6.3-8.2); eGFR > 60.00
[2024-07-31 23:28] LABS: IgG 883 mg/dl (700-1600)
== END ==
LOC: REG 09:07
PROVIDERS: ATTENDING PHYSICIAN Internal Medicine Hematology & Oncology; FAMILY PHYSICIAN Internal Medicine
DX: C56.9 Malignant neoplasm of unspecified ovary (principal); D70.9 Neutropenia, unspecified; M25.522 Pain in left elbow; M25.622 Stiffness of left elbow, not elsewhere classified; D80.1 Nonfamilial hypogammaglobulinemia
CPT/HCPCS: 36415; 80053; 82784; 85025

== ENCOUNTER → 2024-08-26 09:36 | Outpatient (REF) | payer MEDICARE, BC, SELFPAY ==
[2024-08-26 11:12] LABS: % Basophils 0.4 % (0-2); % Eosinophils 2.7 % (0-6); % Immature Granulocytes 0.4 % (0-0.5); % Lymphocytes 21.8 % (20.5-51.1); % Neutrophils 64.7 % (42.2-75.2); Absolute Eosinophils 0.1 10^3/uL (0-0.7); Absolute Monocytes 0.5 10^3/uL (0.1-0.6); Absolute Neutrophils 2.9 10^3/uL (1.4-6.5); Hematocrit 34.6 % (37.0-47.0); Hemoglobin 11.1 g/dL (12.0-16.0); Mean Corp Hgb Conc. 32.1 g/dL (33.0-37.0); Mean Corpuscular Hgb 30.5 pg (27.0-31.0); Mean Corpuscular Volume 95.1 fL (81.0-99.0); Mean Platelet Volume 11.2 fL (7.4-10.4); Nucleated Red Blood Cells % 0 %; Platelet Count 155 10^3/uL (130-400); Red Blood Cell Count 3.64 10^6/uL (4.20-5.40); Red Cell Dist. Width 13.4 % (11.5-14.5); White Blood Cell Count 4.5 10^3/uL (4.8-10.8)
[2024-08-26 11:39] LABS: ALT (SGPT) 29 U/L (0-35); AST (SGOT) 35 U/L (14-36); Albumin 4.2 g/dl (3.5-5.0); Alkaline Phosphatase 45 U/L (38-126); Blood Urea Nitrogen 22 mg/dl (7-17); Calcium 9.5 mg/dl (8.4-10.2); Carbon Dioxide 28 mmol/L (22-30); Chloride 102 mmol/L (98-107); Glucose 107 mg/dl (70-99); Potassium 4.7 mmol/L (3.5-5.1); Sodium 139 mmol/L (135-145); Total Bilirubin 0.7 mg/dl (0.2-1.3); Total Protein 6.3 g/dl (6.3-8.2); eGFR > 60.00
[2024-08-26 15:17] LABS: CA 125 32.4 U/mL (0-35)
== END ==
LOC: REG 09:36
PROVIDERS: ATTENDING PHYSICIAN Internal Medicine Hematology & Oncology; FAMILY PHYSICIAN Internal Medicine; OTHER PHYSICIAN Nurse Practitioner Family
DX: Z09 Encounter for follow-up examination after completed treatment for conditions other than malignant neoplasm (principal); C56.9 Malignant neoplasm of unspecified ovary; D70.9 Neutropenia, unspecified; M25.522 Pain in left elbow; M25.622 Stiffness of left elbow, not elsewhere classified; D80.1 Nonfamilial hypogammaglobulinemia
CPT/HCPCS: 36415; 80053; 85025; 86304

== ENCOUNTER → 2024-08-30 07:48 | Outpatient (REF) | payer MEDICARE, BC, SELFPAY | LOC: RSP 07:48 | PROVIDERS: ATTENDING PHYSICIAN Internal Medicine Hematology & Oncology; FAMILY PHYSICIAN Internal Medicine | DX: R06.02 Shortness of breath (principal) | CPT/HCPCS: 94727; 94729; 88738; 94010 ==

== ENCOUNTER → 2024-09-27 08:48 | Outpatient (REF) | payer MEDICARE, BC, SELFPAY ==
[2024-09-27 09:48] LABS: ALT (SGPT) 23 U/L (0-35); AST (SGOT) 30 U/L (14-36); Alkaline Phosphatase 67 U/L (38-126); Blood Urea Nitrogen 20 mg/dl (7-17); Calcium 9.3 mg/dl (8.4-10.2); Carbon Dioxide 26 mmol/L (22-30); Chloride 102 mmol/L (98-107); Glucose 100 mg/dl (70-99); Potassium 4.7 mmol/L (3.5-5.1); Sodium 136 mmol/L (135-145); Total Bilirubin 0.9 mg/dl (0.2-1.3); Total Protein 6.2 g/dl (6.3-8.2); eGFR > 60.00
[2024-09-27 09:55] LABS: % Basophils 0.3 % (0-2); % Eosinophils 2.2 % (0-6); % Immature Granulocytes 0.3 % (0-0.5); % Lymphocytes 15.6 % (20.5-51.1); % Monocytes 9.4 % (1.7-9.3); % Neutrophils 72.2 % (42.2-75.2); Absolute Eosinophils 0.2 10^3/uL (0-0.7); Absolute Lymphocytes 1.1 10^3/uL (1.2-3.4); Absolute Monocytes 0.7 10^3/uL (0.1-0.6); Hematocrit 32.9 % (37.0-47.0); Hemoglobin 10.8 g/dL (12.0-16.0); Mean Corp Hgb Conc. 32.8 g/dL (33.0-37.0); Mean Corpuscular Hgb 30.5 pg (27.0-31.0); Mean Corpuscular Volume 92.9 fL (81.0-99.0); Mean Platelet Volume 10.6 fL (7.4-10.4); Nucleated Red Blood Cells % 0 %; Platelet Count 170 10^3/uL (130-400); Red Blood Cell Count 3.54 10^6/uL (4.20-5.40); Red Cell Dist. Width 13.3 % (11.5-14.5); White Blood Cell Count 6.9 10^3/uL (4.8-10.8)
[2024-09-27 11:15] LABS: CA 125 51.5 U/mL (0-35)
[2024-09-28 23:29] LABS: IgA 103 mg/dl (70-400); IgG 575 mg/dl (700-1600); IgM 42 mg/dl (40-230)
== END ==
LOC: REG 08:48
PROVIDERS: ATTENDING PHYSICIAN Internal Medicine Hematology & Oncology; FAMILY PHYSICIAN Internal Medicine
DX: C56.9 Malignant neoplasm of unspecified ovary (principal); D70.9 Neutropenia, unspecified; M25.522 Pain in left elbow; M25.622 Stiffness of left elbow, not elsewhere classified; D80.1 Nonfamilial hypogammaglobulinemia; Z87.891 Personal history of nicotine dependence; J70.4 Drug-induced interstitial lung disorders, unspecified
CPT/HCPCS: 36415; 80053; 82784; 85025; 86304

== ENCOUNTER → 2024-10-26 09:30 | Outpatient (REF) | payer MEDICARE, BC, SELFPAY ==
[2024-10-26 10:23] LABS: % Basophils 0.4 % (0-2); % Eosinophils 2.3 % (0-6); % Immature Granulocytes 0.2 % (0-0.5); % Lymphocytes 18.7 % (20.5-51.1); % Neutrophils 69.4 % (42.2-75.2); Absolute Eosinophils 0.1 10^3/uL (0-0.7); Absolute Monocytes 0.5 10^3/uL (0.1-0.6); Absolute Neutrophils 3.6 10^3/uL (1.4-6.5); Hematocrit 34.3 % (37.0-47.0); Mean Corp Hgb Conc. 32.1 g/dL (33.0-37.0); Mean Corpuscular Hgb 29.9 pg (27.0-31.0); Mean Corpuscular Volume 93.2 fL (81.0-99.0); Mean Platelet Volume 11.1 fL (7.4-10.4); Nucleated Red Blood Cells % 0 %; Platelet Count 156 10^3/uL (130-400); Red Blood Cell Count 3.68 10^6/uL (4.20-5.40); Red Cell Dist. Width 13.5 % (11.5-14.5); White Blood Cell Count 5.2 10^3/uL (4.8-10.8)
[2024-10-26 11:24] LABS: ALT (SGPT) 28 U/L (0-35); AST (SGOT) 35 U/L (14-36); Albumin 4.3 g/dl (3.5-5.0); Alkaline Phosphatase 75 U/L (38-126); Blood Urea Nitrogen 19 mg/dl (7-17); Calcium 9.4 mg/dl (8.4-10.2); Carbon Dioxide 23 mmol/L (22-30); Chloride 101 mmol/L (98-107); Glucose 100 mg/dl (70-99); Potassium 4.3 mmol/L (3.5-5.1); Sodium 135 mmol/L (135-145); Total Bilirubin 1.1 mg/dl (0.2-1.3); Total Protein 6.4 g/dl (6.3-8.2); eGFR > 60.00
[2024-10-26 23:38] LABS: IgA 111 mg/dl (70-400); IgG 818 mg/dl (700-1600); IgM 39 mg/dl (40-230)
[2024-10-27 18:55] LABS: CA 125 110 U/mL (0-35)
== END ==
LOC: REG 09:30
PROVIDERS: ATTENDING PHYSICIAN Internal Medicine Hematology & Oncology; FAMILY PHYSICIAN Internal Medicine
DX: C56.9 Malignant neoplasm of unspecified ovary (principal); D70.9 Neutropenia, unspecified; M25.522 Pain in left elbow; M25.622 Stiffness of left elbow, not elsewhere classified; D80.1 Nonfamilial hypogammaglobulinemia; Z87.891 Personal history of nicotine dependence; J70.4 Drug-induced interstitial lung disorders, unspecified
CPT/HCPCS: 36415; 80053; 82784; 85025; 86304

== ENCOUNTER → 2024-11-01 12:28 | Outpatient (REF) | payer MEDICARE, BC, SELFPAY | LOC: RAD 12:28 | PROVIDERS: ATTENDING PHYSICIAN Nurse Practitioner Adult Health; FAMILY PHYSICIAN Internal Medicine | DX: C56.9 Malignant neoplasm of unspecified ovary (principal); D70.9 Neutropenia, unspecified; M25.522 Pain in left elbow; M25.622 Stiffness of left elbow, not elsewhere classified; D80.1 Nonfamilial hypogammaglobulinemia; Z87.891 Personal history of nicotine dependence; J70.4 Drug-induced interstitial lung disorders, unspecified | CPT/HCPCS: 71260; 74177; Q9967 ==

== ENCOUNTER → 2024-11-10 14:17 | Outpatient (REF) | payer MEDICARE, BC, SELFPAY ==
[2024-11-10 15:33] LABS: % Basophils 0.6 % (0-2); % Eosinophils 1.9 % (0-6); % Immature Granulocytes 0.4 % (0-0.5); % Lymphocytes 23.1 % (20.5-51.1); Absolute Eosinophils 0.1 10^3/uL (0-0.7); Absolute Lymphocytes 1.1 10^3/uL (1.2-3.4); Absolute Monocytes 0.4 10^3/uL (0.1-0.6); Absolute Neutrophils 3.1 10^3/uL (1.4-6.5); Hematocrit 32.4 % (37.0-47.0); Hemoglobin 10.4 g/dL (12.0-16.0); Mean Corp Hgb Conc. 32.1 g/dL (33.0-37.0); Mean Corpuscular Volume 93.4 fL (81.0-99.0); Nucleated Red Blood Cells % 0 %; Platelet Count 169 10^3/uL (130-400); Red Blood Cell Count 3.47 10^6/uL (4.20-5.40); Red Cell Dist. Width 13.3 % (11.5-14.5); White Blood Cell Count 4.8 10^3/uL (4.8-10.8)
[2024-11-10 15:53] LABS: ALT (SGPT) 25 U/L (0-35); AST (SGOT) 30 U/L (14-36); Albumin 4.5 g/dl (3.5-5.0); Alkaline Phosphatase 63 U/L (38-126); Blood Urea Nitrogen 22 mg/dl (7-17); Carbon Dioxide 26 mmol/L (22-30); Chloride 100 mmol/L (98-107); Glucose 119 mg/dl (70-99); Potassium 4.5 mmol/L (3.5-5.1); Sodium 134 mmol/L (135-145); Total Bilirubin 0.9 mg/dl (0.2-1.3); Total Protein 6.3 g/dl (6.3-8.2); eGFR > 60.00
[2024-11-10 16:02] LABS: IgA 113 mg/dl (70-400); IgG 735 mg/dl (700-1600); IgM 33 mg/dl (40-230)
[2024-11-10 18:26] LABS: CA 125 140 U/mL (0-35)
== END ==
LOC: REG 14:17
PROVIDERS: ATTENDING PHYSICIAN Internal Medicine Hematology & Oncology; FAMILY PHYSICIAN Internal Medicine
DX: C56.9 Malignant neoplasm of unspecified ovary (principal); D70.9 Neutropenia, unspecified; M25.522 Pain in left elbow; M25.622 Stiffness of left elbow, not elsewhere classified; D80.1 Nonfamilial hypogammaglobulinemia; Z87.891 Personal history of nicotine dependence; J70.4 Drug-induced interstitial lung disorders, unspecified
CPT/HCPCS: 36415; 80053; 82784; 85025; 86304

== ENCOUNTER → 2024-11-29 08:59 | Outpatient (REF) | payer MEDICARE, BC, SELFPAY | LOC: WDC 08:59 | PROVIDERS: ATTENDING PHYSICIAN Surgery; FAMILY PHYSICIAN Nurse Practitioner Primary Care | DX: N64.4 Mastodynia (principal) | CPT/HCPCS: 76642; 77061; 77065 ==

== ENCOUNTER → 2024-12-02 08:00 | Outpatient (REF) | payer MEDICARE, BC, SELFPAY ==
[2024-12-02 08:22] VITALS: BP 144/62; BP_SYST 76
== END ==
LOC: RADI 08:00
PROVIDERS: ATTENDING PHYSICIAN Surgery; FAMILY PHYSICIAN Nurse Practitioner Primary Care; REFERRING PHYSICIAN Internal Medicine Hematology & Oncology
DX: N61.1 Abscess of the breast and nipple (principal)
CPT/HCPCS: 10160; 76942; 82270; 87070; 87205

== ENCOUNTER → 2025-01-24 07:40 | Outpatient (REF) | payer MEDICARE, BC, SELFPAY ==
[2025-01-24 09:25] LABS: % Basophils 0.5 % (0-2); % Eosinophils 2.8 % (0-6); % Immature Granulocytes 0.3 % (0-0.5); % Lymphocytes 18.6 % (20.5-51.1); % Monocytes 9.3 % (1.7-9.3); % Neutrophils 68.5 % (42.2-75.2); Absolute Eosinophils 0.1 10^3/uL (0-0.7); Absolute Lymphocytes 0.7 10^3/uL (1.2-3.4); Absolute Monocytes 0.4 10^3/uL (0.1-0.6); Absolute Neutrophils 2.7 10^3/uL (1.4-6.5); Hematocrit 31.8 % (37.0-47.0); Hemoglobin 10.6 g/dL (12.0-16.0); Mean Corp Hgb Conc. 33.3 g/dL (33.0-37.0); Mean Corpuscular Hgb 30.9 pg (27.0-31.0); Mean Corpuscular Volume 92.7 fL (81.0-99.0); Nucleated Red Blood Cells % 0 %; Platelet Count 159 10^3/uL (130-400); Red Blood Cell Count 3.43 10^6/uL (4.20-5.40); Red Cell Dist. Width 13.2 % (11.5-14.5); Reticulocyte Count 1.4 % (0.4-2.8); White Blood Cell Count 3.9 10^3/uL (4.8-10.8)
[2025-01-24 10:38] LABS: CA 125 835 U/mL (0-35)
[2025-01-24 10:54] LABS: Folate 12.1 ng/ml (2.76-20); Vitamin B12 342 pg/ml (239-931)
== END ==
LOC: REG 07:40
PROVIDERS: ATTENDING PHYSICIAN Internal Medicine Hematology & Oncology; FAMILY PHYSICIAN Internal Medicine
DX: C56.9 Malignant neoplasm of unspecified ovary (principal); D70.9 Neutropenia, unspecified; M25.522 Pain in left elbow; M25.622 Stiffness of left elbow, not elsewhere classified; D80.1 Nonfamilial hypogammaglobulinemia; Z87.891 Personal history of nicotine dependence; J70.4 Drug-induced interstitial lung disorders, unspecified; Z79.899 Other long term (current) drug therapy
CPT/HCPCS: 36415; 82607; 82746; 85025; 85045; 86304

== ENCOUNTER → 2025-02-27 15:19 | Outpatient (REF) | payer MEDICARE, BC, SELFPAY ==
[2025-02-27 16:24] LABS: % Basophils 0.5 % (0-2); % Eosinophils 1.7 % (0-6); % Immature Granulocytes 1.2 % (0-0.5); % Monocytes 13.5 % (1.7-9.3); % Neutrophils 59.1 % (42.2-75.2); Absolute Eosinophils 0.1 10^3/uL (0-0.7); Absolute Immature Granulocytes 0.1 10^3/uL (0-0.05); Absolute Monocytes 0.6 10^3/uL (0.1-0.6); Absolute Neutrophils 2.4 10^3/uL (1.4-6.5); Hematocrit 27.3 % (37.0-47.0); Hemoglobin 9.3 g/dL (12.0-16.0); Mean Corp Hgb Conc. 34.1 g/dL (33.0-37.0); Mean Corpuscular Hgb 30.9 pg (27.0-31.0); Mean Corpuscular Volume 90.7 fL (81.0-99.0); Mean Platelet Volume 9.9 fL (7.4-10.4); Nucleated Red Blood Cells % 0 %; Platelet Count 121 10^3/uL (130-400); Red Blood Cell Count 3.01 10^6/uL (4.20-5.40); Red Cell Dist. Width 12.9 % (11.5-14.5); White Blood Cell Count 4.1 10^3/uL (4.8-10.8)
== END ==
LOC: REG 15:19
PROVIDERS: ATTENDING PHYSICIAN Internal Medicine; FAMILY PHYSICIAN Internal Medicine
DX: C56.9 Malignant neoplasm of unspecified ovary (principal)
CPT/HCPCS: 36415; 85025

== ENCOUNTER 2025-04-11 09:37 | Emergency (ER) | payer MEDICARE, BC, SELFPAY ==
[2025-04-11 09:51] VITALS: BP 144/77
[2025-04-11 10:01] VITALS: BP 161/66
[2025-04-11 10:04] VITALS: BP 166/66; BMI 25.0
--- NOTE | 2025-04-11 10:09 | ED.GENMED ---
History of Present Illness
General
Chief Complaint: Breathing Problem
Source: patient
Time Seen by Provider: 04/11/25 09:56
History of Present Illness
History of Present Illness:
74-year-old female midway through fifth chemotherapy round for ovarian cancer presents complaining of worsening shortness of breath over the past 4 to 5 days. No associated chest pain. She denies leg swelling. In general as well as she notes
fatigue that has been pronounced. She notes a good appetite. No fever. She denies a cough. She spoke with her oncologist at [place], Dr. Marlyn Lopez, who sent her here for evaluation. She states currently the current lesion the treating is a
lesion on her sigmoid. Her bowels have been moving
Past History
Past History
ED Past Medical History: Cancer (Basal Cell, Breast CA, Ovarian CA), CVA (TIA, ), GERD, HTN, Hypercholesterolemia, Psychiatric (Anxiety) and Other (Neuropathy, Ulcers, esophagitis, Renal calculus, SBO, Tinitus, Right ulnar shortening. )
ED Past Surgical History: None, Gynecological (Total hysterectomy), Orthopedic (right arm Ulnar shortened, ) and Other (Cataracts, metastatic ovarian cancer with recent debulking procedure)
Social History
Tobacco: Former smoker
Alcohol: Occasional
Drug: None
Personal:
Living: with family
Phy Exam
Physical Exam
Physical Exam:
General: Chronically ill-appearing female with weak strength to voice and moderate who appears to be working harder to breathe while talk
Heart: Regular rate and rhythm
HEENT normocephalic mucosa slightly dry
Lungs: Clear no obvious wheeze.
Abdomen is soft nontender extremities: No cyanosis or edema
Skin: warm, no rash
Scores
Heart Failure Risk
Heart Failure Risk Score: Not Applicable
Course
Orders/Labs/Results
Orders:
Orders
04/11/25 10:08
Electrocardiogram (*1) Urgent
Reason for Study: Shortness of Breath
CT Chest PE Study Urgent
Comment:
Reason For Exam: sob
EKG- Treatment ONCE
04/11/25 10:17
CMP [Comprehensive Metabolic Panel] Urgent
Complete Blood Count/With Diff Urgent
NT-proBNP Urgent
Troponin I Urgent
Abnormal Lab Results
04/11/25
10:17
WBC 23.9 H 10^3/uL
(4.8-10.8)
RBC 3.18 L 10^6/uL
(4.20-5.40)
Hgb 10.1 L g/dL
(12.0-16.0)
Hct 29.7 L %
(37.0-47.0)
MCH 31.8 H pg
(27.0-31.0)
RDW 15.5 H %
(11.5-14.5)
Abs Immat Gran (auto) 0.6 H 10^3/uL
(0-0.05)
Absolute Neuts (auto) 19.8 H 10^3/uL
(1.4-6.5)
Absolute Monos (auto) 2.2 H 10^3/uL
(0.1-0.6)
Immature Gran % 2.6 H %
(0-0.5)
Neutrophils % 82.7 H %
(42.2-75.2)
Lymphocytes % 5.1 L %
(20.5-51.1)
BUN 18 H mg/dl
(7-17)
Glucose 109 H mg/dl
(70-99)
Alkaline Phosphatase 234 H U/L
(38-126)
04/11/25 10:17
04/11/25 10:17
Vital Signs
Initial and Last Documented VS:
Initial Vital Signs
Temp Pulse Resp BP Pulse Ox
97.8 F 71 16 144/77 100
04/11/25 09:51 04/11/25 09:51 04/11/25 09:51 04/11/25 09:51 04/11/25 09:51
Last Documented Vital Signs
Temp Pulse Resp BP Pulse Ox
97.8 F 67 18 127/55 100
04/11/25 09:51 04/11/25 13:00 04/11/25 13:00 04/11/25 13:00 04/11/25 13:00
MDM/Problems Addressed
Differential Diagnosis Includes:
Fatigue and shortness of breath in a cancer patient. Consider anemia versus electrolyte abnormality versus PE. Patient is not currently anticoagulated.
EKG troponin BNP and PE study pending. While at rest and talking her oxygen is at 100% with a normal heart rate
*Pulse Oximetry
SaO2: 100
Oxygen Mode of Delivery: Room air
Patient hypoxic: no
*Critical Care Note
Total Time (30-74mins, 75-104mins- exclusive of procedures): Not Applicable
Update Note
Update Note:
EKG viewed and interpreted by me. Heart rate 67 no ischemic changes sinus rhythm
PE study negative for pulmonary embolism or consolidation. Labs reviewed white count of 23,000 however patient did receive Neulasta after her most recent chemotherapy treatment. Patient was reexamined states she is feeling better. She looks
better on exam no respiratory distress not hypoxic nor she tachycardic. At this time no indication for admission. She will follow-up with her oncology team at [place]
ED Attending Note
-
Portions of this chart may have been created with voice recognition software.� Occasional wrong word or��sound alike� substitutions may have occurred due to the inherent limitations of voice recognition software.
Discharge Plan
Departure
Patient Disposition: Home (Routine Discharge)
Date of Disposition: 04/11/25
Time of Disposition: 13:19
Patient with high blood pressure during this ER visit?: No
Discharge Problem:
Shortness of breath
Instructions: Shortness of Breath (Dyspnea) (DC)
Prescriptions:
No Action
atorvastatin 40 mg Tablet
40 mg PO DAILY
aspirin 81 MG tablet,delayed release (DR/EC)
81 mg PO DAILY
polyethylene glycol 3350 [Miralax] 17 gram Powder In Packet
17 g PO DAILYPRN PRN (Reason: constipation)
hydralazine 25 mg Tablet
25 mg PO BID
furosemide 20 mg Tablet
20 mg PO MOWEFR
metoprolol succinate 25 mg Tablet Extended Release 24 Hr
25 mg PO DAILY
valsartan 160 mg Tablet
160 mg PO BID
lorazepam 0.5 mg tablet
0.5 mg PO DAILYPRN PRN (Reason: anxiety)
Patient Comments:
07/21/24: last filled 04/30/23 for 20 tablets.
pantoprazole 40 mg Tablet,Delayed Release (Dr/Ec)
40 mg PO BID 30 Days Qty: 60 0RF
famotidine 40 mg Tablet
40 mg PO DAILYPRN PRN (Reason: GERD symptoms) 30 Days Qty: 30 0RF
ondansetron HCl 4 mg tablet
4 mg PO BID PRN (Reason: nausea and vomiting) 14 Days Qty: 28 0RF
Referrals:
Roshan Ram DO [Family Provider, Internal Medicine]
Activity Restrictions/Additional Instructions:
Continue following up with oncology. Please return here for worsening symptoms otherwise
Interventions
Interventions:
*Risk Screen - Suicide Last Done: 04/11/25 09:51
*General Assessment Last Done: 04/11/25 09:51
*Neglect/Abuse Screening Last Done: 04/11/25 10:12
*ED- Fall Risk Assessment Last Done: 04/11/25 10:12
*ED COVID-19 Vaccine History Last Done: 04/11/25 10:12
ED- Cardiac Assessment Last Done: 04/11/25 10:13
ED- Pulmonary Assessment Last Done: 04/11/25 10:13
Discharge Date and Time
Print Language: MALAY
[2025-04-11 10:26] LABS: Hematocrit 29.7 % (37.0-47.0); Hemoglobin 10.1 g/dL (12.0-16.0); Mean Corp Hgb Conc. 34.0 g/dL (33.0-37.0); Mean Corpuscular Volume 93.4 fL (81.0-99.0); Platelet Count 193 10^3/uL (130-400); Red Cell Dist. Width 15.5 % (11.5-14.5)
[2025-04-11 10:48] LABS: ALT (SGPT) 23 U/L (0-35); AST (SGOT) 27 U/L (14-36); Albumin 4.6 g/dl (3.5-5.0); Alkaline Phosphatase 234 U/L (38-126); Blood Urea Nitrogen 18 mg/dl (7-17); Calcium 9.5 mg/dl (8.4-10.2); Carbon Dioxide 25 mmol/L (22-30); Chloride 104 mmol/L (98-107); Estimated Creatinine Clearance 57 ml/min; Glucose 109 mg/dl (70-99); Potassium 3.9 mmol/L (3.5-5.1); Sodium 135 mmol/L (135-145); Total Protein 6.5 g/dl (6.3-8.2); eGFR > 60.00
[2025-04-11 11:03] LABS: Troponin I < 0.012 ng/ml
[2025-04-11 11:23] LABS: Nucleated Red Blood Cells % 0 %
[2025-04-11 12:51] VITALS: BP 126/66
[2025-04-11 13:00] VITALS: BP 127/55
== END 2025-04-11 13:41 | disposition home or self-care (01) ==
LOC: EMR 09:37
PROVIDERS: Physician Assistant; EMERGENCY PHYSICIAN Emergency Medicine; FAMILY PHYSICIAN Internal Medicine
DX: R06.02 Shortness of breath (principal); C56.9 Malignant neoplasm of unspecified ovary; I10 Essential (primary) hypertension; E78.00 Pure hypercholesterolemia, unspecified; Z85.3 Personal history of malignant neoplasm of breast; Z86.73 Personal history of transient ischemic attack (TIA), and cerebral infarction without residual deficits; Z87.891 Personal history of nicotine dependence; Z90.710 Acquired absence of both cervix and uterus; Z79.60 Long term (current) use of unspecified immunomodulators and immunosuppressants
CPT/HCPCS: 99284; 71275; 80053; 83880; 84484; 85025; 93005; Q9967

== ENCOUNTER → 2025-05-25 13:53 | Outpatient (REF) | payer MEDICARE, BC, SELFPAY | LOC: RCS 13:53 | PROVIDERS: ATTENDING PHYSICIAN Specialist; FAMILY PHYSICIAN Nurse Practitioner Primary Care | DX: C56.9 Malignant neoplasm of unspecified ovary (principal) | CPT/HCPCS: 93306 ==

== ENCOUNTER → 2025-07-04 08:56 | Outpatient (REF) | payer MEDICARE, BC, SELFPAY | LOC: WDC 08:56 | PROVIDERS: ATTENDING PHYSICIAN Family Medicine Geriatric Medicine; FAMILY PHYSICIAN Nurse Practitioner Primary Care | DX: Z12.31 Encounter for screening mammogram for malignant neoplasm of breast (principal) | CPT/HCPCS: 77063; 77067 ==